=== PATIENT | male | born 1955 | race African-American/Black ===

== ENCOUNTER 2018-05-15 13:45 | Emergency (ER) | payer MEDICAID ==
[~2018-05-15] VITALS: Ht 170.2 cm; Wt 104.0 kg
[2018-05-15 13:52] VITALS: BP 128/79
== END 2018-05-15 19:30 | disposition home or self-care (01) ==
LOC: ER 13:45
DX: R03.0 Elevated blood-pressure reading, without diagnosis of hypertension (principal); F17.200 Nicotine dependence, unspecified, uncomplicated
CPT/HCPCS: 99281

== ENCOUNTER 2020-03-28 12:31 | Emergency (ER) | payer MEDICAID ==
[~2020-03-28] VITALS: Ht 177.8 cm; Wt 85.0 kg
[2020-03-28] MEDS ORDERED: TETANUS, DIPHTHERIA, PERTUSSIS VAC/PF 0.5ML (>7YR OLD) IM ONE (13:00)
[2020-03-28] MEDS ORDERED: BACITRACIN ZINC OINT UDPKT TOP ONE (13:00)
[2020-03-28] MEDS ORDERED: ACETAMINOPHEN 500MG TABLET PO ONE (13:00)
[2020-03-28 14:36] VITALS: BP 124/67
== END 2020-03-28 14:37 | disposition home or self-care (01) ==
LOC: ER 12:31
DX: S00.91XA Abrasion of unspecified part of head, initial encounter (principal); Z98.890 Other specified postprocedural states; Y04.0XXA Assault by unarmed brawl or fight, initial encounter; Y93.89 Activity, other specified; Y92.89 Other specified places as the place of occurrence of the external cause; Y99.8 Other external cause status
CPT/HCPCS: 90471; 90715; 99284

== ENCOUNTER 2025-08-01 12:28 | Inpatient (IN) | payer MEDICAID ==
[~2025-08-01] VITALS: Ht 180.3 cm; Wt 91.6 kg
[2025-08-01] MEDS: SODIUM CHLORIDE 0.9% 1,000 ML IV ONE (13:00)
[2025-08-01 15:11] LABS: MEAN PLATELET VOLUME 13.2 fl (7.4-10.4); RED BLOOD CELL COUNT 2.34 mill/uL (4.7-6.1); RED CELL DISTRIBUTION WIDTH 13.7 % (11.6-14.6)
[2025-08-01 15:21] LABS: HEMATOCRIT. 19.5 % (42.0-52.0); HEMOGLOBIN. 6.5 g/dL (14.0-18.0); PLATELET 2 x1000/uL (130-400)
[2025-08-01 15:26] LABS: INR 1.2
[2025-08-01 15:27] LABS: CREATININE 2.7 mg/dL (0.6-1.3); TROPONIN I HIGH SENSITIVITY 10 ng/L (3.0-53)
[2025-08-01 15:28] LABS: ETHANOL BLOOD < 10 mg/dL (<10); UREA NITROGEN BLOOD 39 mg/dL (9-23)
[2025-08-01 15:29] LABS: ASPARTATE AMINOTRANSFERASE 33 IU/L (<34)
[2025-08-01 15:30] LABS: BILIRUBIN DIRECT 0.5 mg/dL (<=3.0); BILIRUBIN TOTAL 1.1 mg/dL (0.1-1.0); PROTEIN TOTAL 6.2 g/dL (6.0-8.3)
[2025-08-01 15:55] LABS: LYMPHOCYTES % MANUAL 96.0 % (20.0-50.0); MONOCYTES % MANUAL 4.0 % (2.0-8.0); PLATELET ESTIMATE MARKEDLY DECREASED
[2025-08-01 15:58] LABS: NEUTROPHILS % MANUAL 0.0 % (45.0-75.0)
[2025-08-01] MEDS ORDERED: MORPHINE SULFATE 2 MG/ML INJ (NOT FOR IM USE) IV PRN (19:15)
[2025-08-01] MEDS ORDERED: ZOLPIDEM TARTRATE 5MG TABLET PO PRN (19:15)
[2025-08-01] MEDS ORDERED: MAGNESIUM/ALUMINUM HYDROXIDE/SIMETHICONE 30ML UDC PO PRN (19:15)
[2025-08-01] MEDS: SODIUM CHLORIDE 0.9% 1,000 ML IV SCH (23:33)
[2025-08-02] VITALS (18 sets, daily range): BP systolic 100–129; BP diastolic 54–78; PULSE 83–98; RESP 17–20; TEMP 36.3–39.11424; O2SAT 93–100
[2025-08-02] MEDS: CEFTRIAXONE 1GM/50ML 50 ML IV SCH ×2 (00:18→21:09)
[2025-08-02] MEDS: FILGRASTIM-TBO 300 MCG/0.5 ML SYRINGE SQ SCH (00:19)
[2025-08-02] MEDS: ACETAMINOPHEN 325MG TABLET PO PRN (01:45)
[2025-08-02] MEDS ORDERED: [UNRECOGNIZED DRUG - CODE] PO (05:50)
[2025-08-02] MEDS ORDERED: ACYCLOVIR (05:50)
[2025-08-02] MEDS: HYDROCODONE/ACETAMINOPHEN 5/325MG TABLET PO PRN (06:14)
[2025-08-02 08:09] LABS: UREA NITROGEN BLOOD 68.0 mg/dL (9-23)
[2025-08-02 08:11] LABS: MEAN PLATELET VOLUME 11.1 fl (7.4-10.4); RED BLOOD CELL COUNT 2.41 mill/uL (4.7-6.1); RED CELL DISTRIBUTION WIDTH 14.0 % (11.6-14.6)
[2025-08-02] MEDS: PANTOPRAZOLE SODIUM 40 MG/VIAL IV SCH (08:12)
[2025-08-02 08:37] LABS: HEMATOCRIT. 20.4 % (42.0-52.0); HEMOGLOBIN. 6.7 g/dL (14.0-18.0)
[2025-08-02 08:38] LABS: PLATELET 2 x1000/uL (130-400)
[2025-08-02 09:39] LABS: CREATININE 4.3 mg/dL (0.6-1.3)
[2025-08-02 11:16] LABS: CLARITY URINE TURBID (CLEAR); COLOR URINE YELLOW (YELLOW); GLUCOSE URINE NEGATIVE (NEGATIVE); KETONES URINE TRACE (NEGATIVE); LEUKOCYTE ESTERASE URINE NEGATIVE (NEGATIVE); NITRITE URINE NEGATIVE (NEGATIVE); OCCULT BLOOD URINE 2+ (NEGATIVE); PH URINE 5.0 (4.5-8.0); PROTEIN URINE 2+ (NEGATIVE); SPECIFIC GRAVITY URINE 1.013 (1.005-1.030); UROBILINOGEN URINE 0.2 E.U./dL (0.2-1.0)
[2025-08-02 11:32] LABS: *AMPHETAMINES SCREEN URINE NEGATIVE (NEGATIVE)
[2025-08-02 11:33] LABS: *BARBITURATES SCREEN URINE NEGATIVE (NEGATIVE); *BENZODIAZEPINES SCREEN URINE NEGATIVE (NEGATIVE); *COCAINE SCREEN URINE PRESUMPTIVE POSITIVE (NEGATIVE); CANNABINOID URINE SCREEN NEGATIVE (NEGATIVE); ECSTASY MDMA SCREEN URINE NEGATIVE (NEGATIVE); METHADONE URINE SCREEN NEGATIVE (NEGATIVE); OPIATES URINE SCREEN PRESUMPTIVE POSITIVE (NEGATIVE); PHENCYCLIDINE URINE SCREEN NEGATIVE (NEGATIVE)
[2025-08-02 11:34] LABS: BACTERIA URINE 4+; YEAST URINE NONE SEEN
[2025-08-02 11:57] LABS: SQUAMOUS EPITHELIAL CELL URINE NONE SEEN /lpf (RARE/1+)
[2025-08-02 12:35] LABS: HEPATITIS A AB IGM NEGATIVE (Negative)
[2025-08-02 12:36] LABS: HEPATITIS B CORE AB IGM NEGATIVE (Negative); HEPATITIS C AB NON REACTIVE (Neg) (Negative)
[2025-08-02 19:47] LABS: LYMPHOCYTES % MANUAL 87.0 % (20.0-50.0); MONOCYTES % MANUAL 6.0 % (2.0-8.0); NEUTROPHILS % MANUAL 7.0 % (45.0-75.0); PLATELET ESTIMATE DECREASED
[2025-08-02] MEDS: THIAMINE HCL 100MG TABLET PO SCH (22:16)
[2025-08-03] VITALS (15 sets, daily range): BP systolic 111–143; BP diastolic 57–89; PULSE 78–96; RESP 16–20; TEMP 36.5–39.1; O2SAT 94–100
[2025-08-03 07:06] LABS: MEAN PLATELET VOLUME 7.4 fl (7.4-10.4); RED BLOOD CELL COUNT 2.39 mill/uL (4.7-6.1); RED CELL DISTRIBUTION WIDTH 14.6 % (11.6-14.6)
[2025-08-03 07:20] LABS: INR 1.4
[2025-08-03 07:22] LABS: UREA NITROGEN BLOOD 76.0 mg/dL (9-23)
[2025-08-03 07:50] LABS: HEMATOCRIT. 20.1 % (42.0-52.0); HEMOGLOBIN. 6.9 g/dL (14.0-18.0)
[2025-08-03 07:51] LABS: PLATELET 18 x1000/uL (130-400)
[2025-08-03 07:58] LABS: CREATININE 5.7 mg/dL (0.6-1.3)
[2025-08-03 17:34] LABS: LYMPHOCYTES % MANUAL 90.0 % (20.0-50.0); MONOCYTES % MANUAL 6.0 % (2.0-8.0); NEUTROPHILS % MANUAL 4.0 % (45.0-75.0); PLATELET ESTIMATE MARKEDLY DECREASED
[2025-08-04] VITALS (8 sets, daily range): BP systolic 105–136; BP diastolic 59–86; PULSE 85–98; RESP 18–20; TEMP 36.6–37.1; O2SAT 94–98
[2025-08-04 22:30] LABS: RED BLOOD CELL COUNT 2.27 mill/uL (4.7-6.1); RED CELL DISTRIBUTION WIDTH 15.3 % (11.6-14.6)
[2025-08-04 22:38] LABS: PLATELET 2 x1000/uL (130-400)
[2025-08-04 22:47] LABS: UREA NITROGEN BLOOD 91.0 mg/dL (9-23)
[2025-08-04 22:48] LABS: LACTATE DEHYDROGENASE 142.0 IU/L (120-246)
[2025-08-04 22:51] LABS: CREATININE 5.3 mg/dL (0.6-1.3)
[2025-08-05] VITALS (23 sets, daily range): BP systolic 92–126; BP diastolic 49–76; PULSE 64–114; RESP 18–20; TEMP 35.89176–37.2252; O2SAT 92–97
[2025-08-05 10:11] LABS: ANTI-NUCLEAR ANTIBODIES DIRECT Negative (Negative); COMPLEMENT C3 57 mg/dL (82-167); COMPLEMENT C4 < 2 mg/dL (12-38)
[2025-08-05] MEDS: NALOXONE HCL 0.4MG/ML VIAL IV PRN (12:02)
[2025-08-05] MEDS: METOPROLOL TARTRATE 25MG TABLET PO SCH (21:00)
[2025-08-06] VITALS (17 sets, daily range): BP systolic 110–180; BP diastolic 60–83; PULSE 68–103; RESP 18–20; TEMP 35.72508–37.11408; O2SAT 95–98
[2025-08-06 12:06] LABS: RED BLOOD CELL COUNT 2.78 mill/uL (4.7-6.1); RED CELL DISTRIBUTION WIDTH 15.8 % (11.6-14.6)
[2025-08-06 12:35] LABS: PLATELET 6 x1000/uL (130-400)
[2025-08-06 17:02] LABS: HEMATOCRIT. 23.3 % (42.0-52.0); HEMOGLOBIN. 8.1 g/dL (14.0-18.0); MEAN PLATELET VOLUME 8.8 fl (7.4-10.4); RED BLOOD CELL COUNT 2.76 mill/uL (4.7-6.1); RED CELL DISTRIBUTION WIDTH 15.9 % (11.6-14.6)
[2025-08-06 17:25] LABS: PLATELET 8 x1000/uL (130-400); UREA NITROGEN BLOOD 77.0 mg/dL (9-23)
[2025-08-06 17:40] LABS: CREATININE 3.6 mg/dL (0.6-1.3)
[2025-08-06 18:48] LABS: LYMPHOCYTES % MANUAL 92.0 % (20.0-50.0); MONOCYTES % MANUAL 4.0 % (2.0-8.0); NEUTROPHILS % MANUAL 4.0 % (45.0-75.0); PLATELET ESTIMATE MARKEDLY DECREASED
[2025-08-06] MEDS: TRIAMCINOLONE ACETONIDE 0.1 % OINT 15GM TOP SCH (20:52)
[2025-08-06] MEDS: CLONIDINE 0.1MG TABLET PO PRN (21:17)
[2025-08-07] VITALS (14 sets, daily range): BP systolic 109–157; BP diastolic 60–82; PULSE 65–89; RESP 18–20; TEMP 35.8362–37.1; O2SAT 97–100
[2025-08-07 16:53] LABS: MEAN PLATELET VOLUME 7.3 fl (7.4-10.4); RED BLOOD CELL COUNT 2.37 mill/uL (4.7-6.1); RED CELL DISTRIBUTION WIDTH 15.9 % (11.6-14.6)
[2025-08-07 17:06] LABS: CREATININE 2.6 mg/dL (0.6-1.3); UREA NITROGEN BLOOD 61.0 mg/dL (9-23)
[2025-08-07 17:16] LABS: HEMATOCRIT. 19.9 % (42.0-52.0); HEMOGLOBIN. 6.8 g/dL (14.0-18.0)
[2025-08-07 17:17] LABS: PLATELET 16 x1000/uL (130-400)
[2025-08-07 18:42] LABS: LYMPHOCYTES % MANUAL 92.0 % (20.0-50.0); MONOCYTES % MANUAL 4.0 % (2.0-8.0); NEUTROPHILS % MANUAL 4.0 % (45.0-75.0)
[2025-08-07 18:43] LABS: PLATELET ESTIMATE MARKEDLY DECREASED
[2025-08-08] VITALS (14 sets, daily range): BP systolic 136–168; BP diastolic 54–82; PULSE 62–87; RESP 18–20; TEMP 36.55848–37.1; O2SAT 93–100
[2025-08-08 10:31] LABS: HEMATOCRIT. 21.6 % (42.0-52.0); HEMOGLOBIN. 7.4 g/dL (14.0-18.0); MEAN PLATELET VOLUME 8.2 fl (7.4-10.4); RED BLOOD CELL COUNT 2.61 mill/uL (4.7-6.1); RED CELL DISTRIBUTION WIDTH 16.3 % (11.6-14.6)
[2025-08-08 10:45] LABS: PLATELET 10 x1000/uL (130-400)
[2025-08-08 10:51] LABS: CREATININE 2.1 mg/dL (0.6-1.3); UREA NITROGEN BLOOD 53.0 mg/dL (9-23)
[2025-08-08 14:19] LABS: LYMPHOCYTES % MANUAL 92.0 % (20.0-50.0); MONOCYTES % MANUAL 4.0 % (2.0-8.0); NEUTROPHILS % MANUAL 4.0 % (45.0-75.0); PLATELET ESTIMATE MARKEDLY DECREASED
[2025-08-09] VITALS (7 sets, daily range): BP systolic 140–164; BP diastolic 56–87; PULSE 62–76; RESP 18–20; TEMP 36.6–37.3; O2SAT 95–98
[2025-08-09 10:42] LABS: HEMATOCRIT. 21.4 % (42.0-52.0); HEMOGLOBIN. 7.4 g/dL (14.0-18.0); MEAN PLATELET VOLUME 7.9 fl (7.4-10.4); RED BLOOD CELL COUNT 2.59 mill/uL (4.7-6.1); RED CELL DISTRIBUTION WIDTH 16.0 % (11.6-14.6)
[2025-08-09 10:49] LABS: PLATELET 30 x1000/uL (130-400)
[2025-08-09 10:52] LABS: CREATININE 1.6 mg/dL (0.6-1.3); UREA NITROGEN BLOOD 39.0 mg/dL (9-23)
[2025-08-09 17:32] LABS: LYMPHOCYTES % MANUAL 100.0 % (20.0-50.0); PLATELET ESTIMATE MARKEDLY DECREASED
[2025-08-09 17:33] LABS: NEUTROPHILS % MANUAL 0.0 % (45.0-75.0)
[2025-08-09] MEDS: POTASSIUM CHLORIDE 20MEQ TABLET SR PO NR (22:09)
[2025-08-10] VITALS: BP 151/63; PULSE 68; RESP 18; TEMP 36.7; O2SAT 98
[2025-08-10 04:00] VITALS: BP 155/75; PULSE 59; RESP 18; TEMP 36.4; O2SAT 98
[2025-08-10 08:00] VITALS: BP 168/66; PULSE 59; RESP 20; TEMP 36.7; O2SAT 99
[2025-08-10 12:00] VITALS: BP 149/63; PULSE 66; RESP 20; TEMP 36.7; O2SAT 98
[2025-08-10 16:00] VITALS: BP 152/81; PULSE 70; RESP 18; TEMP 36.7; O2SAT 97
[2025-08-10 20:00] VITALS: BP 169/72; PULSE 78; RESP 18; TEMP 36.9; O2SAT 98
[2025-08-11] VITALS: BP 137/55; PULSE 68; RESP 17; TEMP 37.1; O2SAT 99
[2025-08-11 04:00] VITALS: BP 166/70; PULSE 68; RESP 17; TEMP 36.3; O2SAT 97
[2025-08-11 08:00] VITALS: BP 143/65; PULSE 70; RESP 19; TEMP 36.7; O2SAT 100
[2025-08-11 10:12] LABS: ATYPICAL P-ANCA <1:20 titer (Neg:<1:20); CYTOPLASMIC C-ANCA <1:20 titer (Neg:<1:20); PERINUCLEAR P-ANCA <1:20 titer (Neg:<1:20)
[2025-08-11 12:00] VITALS: BP 152/72; PULSE 70; RESP 19; TEMP 36.6; O2SAT 100
[2025-08-11 13:08] LABS: DIRECTOR REVIEW Comment: (.); FISH RESULTS Comment: (.)
[2025-08-11 16:00] VITALS: BP 158/82; PULSE 74; RESP 16; TEMP 36.5; O2SAT 96
[2025-08-11 20:00] VITALS: BP 183/86; PULSE 78; RESP 20; TEMP 37.2; O2SAT 98
[2025-08-12] VITALS (7 sets, daily range): BP systolic 130–164; BP diastolic 61–95; PULSE 71–84; RESP 17–19; TEMP 36.7–37.2; O2SAT 99–100
[2025-08-12 14:11] LABS: ANTI-MYELOPEROXIDASE AB 0.2 units (0.0-0.9); ANTI-PROTEINASE 3 ABS 2.8 units (0.0-0.9)
[2025-08-13] VITALS: BP 131/91; PULSE 66; RESP 18; TEMP 36.1; O2SAT 100
[2025-08-13 08:00] VITALS: BP 156/74; PULSE 74; RESP 16; TEMP 36.3; O2SAT 99
[2025-08-13 12:00] VITALS: BP 137/70; PULSE 67; RESP 18; TEMP 36.6; O2SAT 100
[2025-08-13 16:00] VITALS: BP 143/75; PULSE 78; RESP 20; TEMP 36.6; O2SAT 99
[2025-08-13 20:00] VITALS: BP 135/72; PULSE 84; RESP 18; TEMP 37.9; O2SAT 98
[2025-08-14] VITALS: BP 117/70; PULSE 72; RESP 18; TEMP 37; O2SAT 98
[2025-08-14 04:00] VITALS: BP 134/68; PULSE 76; RESP 16; TEMP 36.9; O2SAT 98
[2025-08-14 08:00] VITALS: BP 140/69; PULSE 86; RESP 16; TEMP 36.3; O2SAT 96
[2025-08-14 12:00] VITALS: BP 114/69; PULSE 75; RESP 16; TEMP 36.7; O2SAT 100
[2025-08-14 16:00] VITALS: BP 148/75; PULSE 93; RESP 18; TEMP 38.2; O2SAT 97
[2025-08-14 20:00] VITALS: BP 127/59; PULSE 86; RESP 18; TEMP 37.2; O2SAT 96
[2025-08-15] VITALS: BP 179/77; PULSE 87; RESP 18; TEMP 37.8; O2SAT 98
[2025-08-15 00:09] LABS: MEAN PLATELET VOLUME 8.6 fl (7.4-10.4); RED BLOOD CELL COUNT 2.41 mill/uL (4.7-6.1); RED CELL DISTRIBUTION WIDTH 14.8 % (11.6-14.6)
[2025-08-15 00:21] LABS: CREATININE 1.3 mg/dL (0.6-1.3)
[2025-08-15 00:22] LABS: UREA NITROGEN BLOOD 27 mg/dL (9-23)
[2025-08-15 00:28] LABS: HEMATOCRIT. 20.6 % (42.0-52.0); HEMOGLOBIN. 7.0 g/dL (14.0-18.0); PLATELET 3 x1000/uL (130-400)
[2025-08-15 01:32] LABS: CLARITY URINE CLEAR (CLEAR); COLOR URINE YELLOW (YELLOW); GLUCOSE URINE NEGATIVE (NEGATIVE); KETONES URINE NEGATIVE (NEGATIVE); LEUKOCYTE ESTERASE URINE NEGATIVE (NEGATIVE); NITRITE URINE NEGATIVE (NEGATIVE); OCCULT BLOOD URINE NEGATIVE (NEGATIVE); PH URINE 6.0 (4.5-8.0); PROTEIN URINE NEGATIVE (NEGATIVE); SPECIFIC GRAVITY URINE 1.015 (1.005-1.030); UROBILINOGEN URINE 1.0 E.U./dL (0.2-1.0)
[2025-08-15 04:00] VITALS: BP 129/62; PULSE 90; RESP 18; TEMP 36.2; O2SAT 97
[2025-08-15 08:00] VITALS: BP 138/63; PULSE 94; RESP 17; TEMP 36.9; O2SAT 100
[2025-08-15] MEDS ORDERED: NALOXONE HCL 0.4MG/ML VIAL IV PRN (09:45)
[2025-08-15 12:00] VITALS: BP 115/55; PULSE 76; RESP 16; TEMP 36.5; O2SAT 100
[2025-08-15 12:16] LABS: LYMPHOCYTES % MANUAL 100.0 % (20.0-50.0); PLATELET ESTIMATE MARKEDLY DECREASED
[2025-08-15] MEDS: NYSTATIN 100,000 UNITS/ML 5ML UDC SSW SCH (12:59)
[2025-08-15 16:00] VITALS: BP 115/54; PULSE 90; RESP 18; TEMP 36.7; O2SAT 100
[2025-08-15 20:00] VITALS: BP 89/47; PULSE 89; RESP 17; TEMP 37.6; O2SAT 99
[2025-08-16] VITALS (11 sets, daily range): BP systolic 79–127; BP diastolic 37–72; PULSE 71–100; RESP 17–20; TEMP 36.6–37.7808; O2SAT 97–100
[2025-08-16] MEDS ORDERED: PIPERACILLIN/TAZO 3.375G/50ML 50 ML IV SCH (14:00)
[2025-08-16] MEDS: CEFEPIME 2GM PREMIX 100ML IV SCH (14:46)
[2025-08-16] MEDS: VISCOUS LIDOCAINE 2% 15 ML UDC MM PRN (14:46)
[2025-08-16 16:25] LABS: MEAN PLATELET VOLUME 7.5 fl (7.4-10.4); RED BLOOD CELL COUNT 2.09 mill/uL (4.7-6.1); RED CELL DISTRIBUTION WIDTH 14.5 % (11.6-14.6)
[2025-08-16 16:44] LABS: CREATININE 1.6 mg/dL (0.6-1.3)
[2025-08-16 16:45] LABS: UREA NITROGEN BLOOD 35.0 mg/dL (9-23)
[2025-08-16 17:05] LABS: HEMATOCRIT. 17.9 % (42.0-52.0); HEMOGLOBIN. 5.9 g/dL (14.0-18.0); PLATELET 13 x1000/uL (130-400)
[2025-08-16 17:46] LABS: LYMPHOCYTES % MANUAL 96.0 % (20.0-50.0); MONOCYTES % MANUAL 3.0 % (2.0-8.0); NEUTROPHILS % MANUAL 1.0 % (45.0-75.0); PLATELET ESTIMATE MARKEDLY DECREASED
[2025-08-16] MEDS ORDERED: ACETAMINOPHEN 325MG TABLET PO NR (18:26)
[2025-08-17] VITALS (36 sets, daily range): BP systolic 79–146; BP diastolic 37–85; PULSE 67–88; RESP 10–25; TEMP 36.7–38.3; O2SAT 93–100
[2025-08-17] MEDS: SODIUM CHLORIDE 0.9% 1,000 ML IV SCH
[2025-08-17] MEDS: SODIUM CHLORIDE 0.9% 1,000 ML IV ONE (00:08)
[2025-08-17 09:22] LABS: CLARITY URINE CLEAR (CLEAR); COLOR URINE YELLOW (YELLOW); GLUCOSE URINE NEGATIVE (NEGATIVE); KETONES URINE NEGATIVE (NEGATIVE); LEUKOCYTE ESTERASE URINE NEGATIVE (NEGATIVE); NITRITE URINE NEGATIVE (NEGATIVE); OCCULT BLOOD URINE NEGATIVE (NEGATIVE); PH URINE 5.5 (4.5-8.0); PROTEIN URINE TRACE (NEGATIVE); SPECIFIC GRAVITY URINE 1.017 (1.005-1.030); UROBILINOGEN URINE 0.2 E.U./dL (0.2-1.0)
[2025-08-17 09:44] LABS: HYALINE CASTS URINE 0-5 /lpf
[2025-08-17 09:45] LABS: RBC URINE 0-2 /hpf (0-2); SQUAMOUS EPITHELIAL CELL URINE FEW /lpf (RARE/1+); WBC URINE 0-2 /hpf (0-2)
[2025-08-17 09:46] LABS: BACTERIA URINE TRACE
[2025-08-17 13:58] LABS: CREATININE 1.3 mg/dL (0.6-1.3); UREA NITROGEN BLOOD 27 mg/dL (9-23)
[2025-08-17 22:07] LABS: MEAN PLATELET VOLUME 7.9 fl (7.4-10.4); RED BLOOD CELL COUNT 1.90 mill/uL (4.7-6.1); RED CELL DISTRIBUTION WIDTH 14.4 % (11.6-14.6)
[2025-08-17 22:30] LABS: HEMOGLOBIN. 5.6 g/dL (14.0-18.0)
[2025-08-17 22:31] LABS: HEMATOCRIT. 16.3 % (42.0-52.0); PLATELET 42 x1000/uL (130-400)
[2025-08-17 23:13] LABS: BAND% 1.0 % (1.0-6.0); LYMPHOCYTES % MANUAL 95.0 % (20.0-50.0); MONOCYTES % MANUAL 4.0 % (2.0-8.0); PLATELET ESTIMATE MARKEDLY DECREASED
[2025-08-17 23:15] LABS: NEUTROPHILS % MANUAL 0.0 % (45.0-75.0)
[2025-08-18] VITALS (24 sets, daily range): BP systolic 122–163; BP diastolic 55–78; PULSE 56–77; RESP 9–24; TEMP 36.1–37.55856; O2SAT 96–99
[2025-08-18 10:22] LABS: MEAN PLATELET VOLUME 8.1 fl (7.4-10.4); RED BLOOD CELL COUNT 2.34 mill/uL (4.7-6.1); RED CELL DISTRIBUTION WIDTH 14.1 % (11.6-14.6)
[2025-08-18 10:35] LABS: CREATININE 1.1 mg/dL (0.6-1.3); UREA NITROGEN BLOOD 22 mg/dL (9-23)
[2025-08-18 10:54] LABS: HEMATOCRIT. 20.0 % (42.0-52.0); HEMOGLOBIN. 6.7 g/dL (14.0-18.0); PLATELET 33 x1000/uL (130-400)
[2025-08-18 15:40] LABS: LYMPHOCYTES % MANUAL 96.0 % (20.0-50.0); MONOCYTES % MANUAL 2.0 % (2.0-8.0); NEUTROPHILS % MANUAL 2.0 % (45.0-75.0); PLATELET ESTIMATE MARKEDLY DECREASED
[2025-08-18] MEDS: NYSTATIN 100,000 UNITS/ML 5ML UDC SSW SCH (15:50)
[2025-08-18] MEDS: DIPHENHYDRAMINE 12.5MG/5ML UDC PO SCH (15:51)
[2025-08-18] MEDS: MAGNESIUM/ALUMINUM HYDROXIDE/SIMETHICONE 30ML UDC PO SCH (15:51)
[2025-08-18] MEDS: VISCOUS LIDOCAINE 2% 15 ML UDC MM SCH (15:51)
[2025-08-19] VITALS (11 sets, daily range): BP systolic 152–173; BP diastolic 69–91; PULSE 57–78; RESP 9–22; TEMP 36.1–37.1; O2SAT 93–98
[2025-08-19 12:54] LABS: HEMATOCRIT. 22.3 % (42.0-52.0); HEMOGLOBIN. 7.6 g/dL (14.0-18.0); MEAN PLATELET VOLUME 8.0 fl (7.4-10.4); RED BLOOD CELL COUNT 2.63 mill/uL (4.7-6.1); RED CELL DISTRIBUTION WIDTH 13.6 % (11.6-14.6)
[2025-08-19 13:04] LABS: CREATININE 1.0 mg/dL (0.6-1.3); UREA NITROGEN BLOOD 17 mg/dL (9-23)
[2025-08-19 13:38] LABS: PLATELET 18 x1000/uL (130-400)
[2025-08-19] MEDS: MORPHINE SULFATE 4 MG/ML INJ (FOR IV/IM USE) IV PRN (15:27)
[2025-08-19 17:24] LABS: LYMPHOCYTES % MANUAL 98.0 % (20.0-50.0); METAMYELOCYTES % 1.0 % (0-0); NEUTROPHILS % MANUAL 1.0 % (45.0-75.0); PLATELET ESTIMATE MARKEDLY DECREASED
[2025-08-20] VITALS: BP 173/81; PULSE 61; RESP 20; TEMP 37.6; O2SAT 95
[2025-08-20 04:00] VITALS: BP 144/72; PULSE 53; RESP 15; O2SAT 96
[2025-08-20 05:22] LABS: BASOPHILS % 0.0 % (0.0-2.0); EOSINOPHILS % 0.1 % (0.0-5.0); HEMATOCRIT. 21.5 % (42.0-52.0); HEMOGLOBIN. 7.1 g/dL (14.0-18.0); LYMPHOCYTES % 96.6 % (20.0-50.0); MEAN PLATELET VOLUME 8.0 fl (7.4-10.4); MONOCYTES % 1.9 % (2.0-8.0); NEUTROPHILS % 1.4 % (40.0-76.0); RED BLOOD CELL COUNT 2.51 mill/uL (4.7-6.1); RED CELL DISTRIBUTION WIDTH 14.0 % (11.6-14.6)
[2025-08-20 05:41] LABS: CREATININE 1.0 mg/dL (0.6-1.3); UREA NITROGEN BLOOD 14 mg/dL (9-23)
[2025-08-20 06:31] LABS: PLATELET 12 x1000/uL (130-400)
[2025-08-20 08:00] VITALS: BP 146/73; PULSE 53; RESP 18; TEMP 36.7; O2SAT 95
[2025-08-20 12:00] VITALS: BP 161/76; PULSE 52; RESP 17; TEMP 36.7; O2SAT 97
[2025-08-20 16:00] VITALS: BP 138/72; PULSE 56; RESP 18; TEMP 36.4; O2SAT 96
[2025-08-20 20:00] VITALS: BP 123/75; PULSE 60; RESP 18; TEMP 36.8; O2SAT 97
[2025-08-21] VITALS: BP 139/79; PULSE 60; RESP 18; TEMP 36.4; O2SAT 98
[2025-08-21 04:00] VITALS: BP 125/75; PULSE 60; RESP 18; TEMP 37.1; O2SAT 98
[2025-08-21 20:00] VITALS: BP 112/70; PULSE 65; RESP 18; TEMP 36.7; O2SAT 99
[2025-08-22] VITALS: BP 159/68; PULSE 63; RESP 19; TEMP 37.3; O2SAT 96
[2025-08-22 04:00] VITALS: BP 135/69; PULSE 62; RESP 18; TEMP 36.6; O2SAT 97
[2025-08-22 08:00] VITALS: BP 119/74; PULSE 68; RESP 18; TEMP 36.7; O2SAT 98
[2025-08-22 12:00] VITALS: BP 105/63; PULSE 60; RESP 18; TEMP 36.7; O2SAT 100
[2025-08-22 16:00] VITALS: BP 106/67; PULSE 67; RESP 18; TEMP 37.1; O2SAT 100
[2025-08-22] MEDS: DOCUSATE SODIUM 100MG CAPSULE PO SCH (16:03)
[2025-08-22 20:00] VITALS: BP 119/68; PULSE 60; RESP 20; TEMP 36.6; O2SAT 95
[2025-08-23] VITALS: BP 117/72; PULSE 96; RESP 20; TEMP 37.2; O2SAT 96
[2025-08-23 04:00] VITALS: BP 118/70; PULSE 71; RESP 20; TEMP 36.4; O2SAT 98
[2025-08-23 08:00] VITALS: BP 127/74; PULSE 66; RESP 16; TEMP 37; O2SAT 100
[2025-08-23 12:00] VITALS: BP 106/63; PULSE 69; RESP 16; TEMP 36.8; O2SAT 100
[2025-08-23 16:00] VITALS: BP 116/69; PULSE 69; RESP 18; TEMP 37.1; O2SAT 100
[2025-08-23 20:00] VITALS: BP 117/75; PULSE 70; RESP 20; TEMP 36.8; O2SAT 100
[2025-08-24] VITALS (8 sets, daily range): BP systolic 98–159; BP diastolic 60–76; PULSE 59–72; RESP 17–20; TEMP 35.39172–37.1; O2SAT 97–99
[2025-08-24 07:44] LABS: MEAN PLATELET VOLUME 10.2 fl (7.4-10.4); RED BLOOD CELL COUNT 2.07 mill/uL (4.7-6.1); RED CELL DISTRIBUTION WIDTH 13.5 % (11.6-14.6)
[2025-08-24 07:55] LABS: HEMATOCRIT. 17.6 % (42.0-52.0); HEMOGLOBIN. 5.9 g/dL (14.0-18.0); PLATELET 2 x1000/uL (130-400)
[2025-08-24 08:09] LABS: CREATININE 0.7 mg/dL (0.6-1.3)
[2025-08-24 08:10] LABS: UREA NITROGEN BLOOD 12 mg/dL (9-23)
[2025-08-24 11:06] LABS: LYMPHOCYTES % MANUAL 97.0 % (20.0-50.0); MONOCYTES % MANUAL 1.0 % (2.0-8.0); NEUTROPHILS % MANUAL 2.0 % (45.0-75.0); PLATELET ESTIMATE MARKEDLY DECREASED
[2025-08-24] MEDS: POTASSIUM CHLORIDE 20MEQ TABLET SR PO SCH (12:54)
[2025-08-24 22:52] LABS: PHOSPHORUS 2.5 mg/dL (2.5-4.9)
[2025-08-25] VITALS (26 sets, daily range): BP systolic 109–156; BP diastolic 57–84; PULSE 63–84; RESP 16–20; TEMP 35.50284–37.72524; O2SAT 96–100
[2025-08-25] MEDS ORDERED: MAGNESIUM 2 G PREMIX 50 ML IV NR (10:00)
[2025-08-25 10:04] LABS: MEAN PLATELET VOLUME 7.6 fl (7.4-10.4); RED BLOOD CELL COUNT 1.69 mill/uL (4.7-6.1); RED CELL DISTRIBUTION WIDTH 13.2 % (11.6-14.6)
[2025-08-25 10:20] LABS: HEMATOCRIT. 14.4 % (42.0-52.0); HEMOGLOBIN. 4.9 g/dL (14.0-18.0)
[2025-08-25 14:18] LABS: BAND% 1.0 % (1.0-6.0); LYMPHOCYTES % MANUAL 96.0 % (20.0-50.0); MONOCYTES % MANUAL 3.0 % (2.0-8.0)
[2025-08-25 14:19] LABS: PLATELET ESTIMATE MARKEDLY DECREASED
[2025-08-25 14:22] LABS: PLATELET 46 x1000/uL (130-400)
[2025-08-25 16:16] LABS: NEUTROPHILS % MANUAL 0.0 % (45.0-75.0)
[2025-08-25] MEDS: MAGNESIUM 2 G PREMIX 50 ML IV NR (20:00)
[2025-08-26] VITALS: BP 126/76; PULSE 69; RESP 17; TEMP 36.7; O2SAT 97
[2025-08-26 04:00] VITALS: BP 121/70; PULSE 80; RESP 18; TEMP 36.1; O2SAT 97
[2025-08-26 07:07] LABS: A/G RATIO 0.4 (0.7-1.7); BETA GLOBULIN 1.2 g/dL (0.7-1.3); GAMMA GLOBULINS 2.9 g/dL (0.4-1.8); GLOBULIN TOTAL 5.1 g/dL (2.2-3.9); M-SPIKE Not Observed g/dL (Not Observed); TOTAL PROTEIN SERUM 7.0 g/dL (6.0-8.5)
[2025-08-26 08:00] VITALS: BP 113/61; PULSE 74; RESP 19; TEMP 36.9; O2SAT 97
[2025-08-26 12:00] VITALS: BP 112/70; PULSE 58; RESP 18; TEMP 37; O2SAT 97
[2025-08-26 12:22] LABS: MEAN PLATELET VOLUME 7.4 fl (7.4-10.4); RED BLOOD CELL COUNT 2.30 mill/uL (4.7-6.1); RED CELL DISTRIBUTION WIDTH 13.4 % (11.6-14.6)
[2025-08-26 12:33] LABS: INR 1.1
[2025-08-26 12:48] LABS: CREATININE 0.8 mg/dL (0.6-1.3)
[2025-08-26 12:49] LABS: UREA NITROGEN BLOOD 11 mg/dL (9-23)
[2025-08-26 12:50] LABS: HEMATOCRIT. 19.7 % (42.0-52.0); HEMOGLOBIN. 6.7 g/dL (14.0-18.0)
[2025-08-26 12:51] LABS: PLATELET 36 x1000/uL (130-400)
[2025-08-26 12:52] LABS: PHOSPHORUS 3.8 mg/dL (2.5-4.9)
[2025-08-26 16:00] VITALS: BP 100/67; PULSE 53; RESP 19; TEMP 36.8; O2SAT 98
[2025-08-26 20:00] VITALS: BP 118/76; PULSE 81; RESP 19; TEMP 36.6; O2SAT 98
[2025-08-27] VITALS (12 sets, daily range): BP systolic 103–135; BP diastolic 66–82; PULSE 61–75; RESP 15–20; TEMP 36.4–37.44744; O2SAT 96–100
[2025-08-27 10:07] LABS: LYMPHOCYTES % MANUAL 98.0 % (20.0-50.0); MONOCYTES % MANUAL 2.0 % (2.0-8.0)
[2025-08-27 10:08] LABS: PLATELET ESTIMATE MARKEDLY DECREASED
[2025-08-27] MEDS: ONDANSETRON HCL 4MG/2ML INJ IV PRN (23:25)
[2025-08-28] VITALS: BP 146/83; PULSE 77; RESP 20; TEMP 36.4; O2SAT 97
[2025-08-28 04:00] VITALS: BP 107/72; PULSE 71; RESP 16; TEMP 36.7; O2SAT 99
[2025-08-28 08:00] VITALS: BP 107/69; PULSE 69; RESP 20; TEMP 36.2; O2SAT 98
[2025-08-28 12:00] VITALS: BP 106/70; PULSE 86; RESP 19; TEMP 36.2; O2SAT 98
[2025-08-28 16:00] VITALS: BP 110/71; PULSE 83; RESP 19; TEMP 36.1; O2SAT 98
[2025-08-28 20:00] VITALS: BP 102/65; PULSE 70; RESP 20; TEMP 36.7; O2SAT 99
[2025-08-29] VITALS: BP 113/67; PULSE 82; RESP 19; TEMP 36.4; O2SAT 98
[2025-08-29 04:00] VITALS: BP 117/75; PULSE 82; RESP 16; TEMP 36.1; O2SAT 100
[2025-08-29 06:52] LABS: CREATININE 0.9 mg/dL (0.6-1.3); UREA NITROGEN BLOOD 10 mg/dL (9-23)
[2025-08-29 06:58] LABS: HEMOGLOBIN. 7.2 g/dL (14.0-18.0); MEAN PLATELET VOLUME 7.1 fl (7.4-10.4); RED BLOOD CELL COUNT 2.45 mill/uL (4.7-6.1); RED CELL DISTRIBUTION WIDTH 13.4 % (11.6-14.6)
[2025-08-29 07:54] LABS: HEMATOCRIT. 20.9 % (42.0-52.0)
[2025-08-29 07:55] LABS: PLATELET 13 x1000/uL (130-400)
[2025-08-29 08:00] VITALS: BP 106/69; PULSE 85; RESP 17; TEMP 37; O2SAT 96
[2025-08-29] MEDS ORDERED: METO25TA6 PO (11:13)
[2025-08-29] MEDS ORDERED: THIA100T72 PO (11:13)
[2025-08-29 12:00] VITALS: BP 100/64; RESP 16; TEMP 36.4; O2SAT 80
[2025-08-29 13:13] LABS: BAND% 2.0 % (1.0-6.0); LYMPHOCYTES % MANUAL 93.0 % (20.0-50.0); MONOCYTES % MANUAL 2.0 % (2.0-8.0); NEUTROPHILS % MANUAL 3.0 % (45.0-75.0); PLATELET ESTIMATE MARKEDLY DECREASED
[2025-08-29 16:00] VITALS: BP 95/60; PULSE 93; RESP 18; TEMP 36.4; O2SAT 96
[2025-08-29 20:00] VITALS: BP 97/63; PULSE 87; RESP 18; TEMP 37.3; O2SAT 96
[2025-08-30] VITALS: BP 103/64; PULSE 78; RESP 19; TEMP 36.7; O2SAT 97
[2025-08-30 04:00] VITALS: BP 110/65; PULSE 78; RESP 19; TEMP 36.7; O2SAT 97
[2025-08-30 08:00] VITALS: BP 99/55; PULSE 77; RESP 20; TEMP 36.7; O2SAT 97
[2025-08-30 12:00] VITALS: BP 105/62; PULSE 82; RESP 20; TEMP 36.7; O2SAT 98
[2025-08-30 16:00] VITALS: BP 102/63; PULSE 78; RESP 20; TEMP 36.6; O2SAT 98
[2025-08-30 20:00] VITALS: BP 99/68; PULSE 80; RESP 16; TEMP 36.4; O2SAT 100
[2025-08-31] VITALS: BP 97/67; PULSE 86; RESP 17; TEMP 37; O2SAT 99
[2025-08-31 04:00] VITALS: BP 102/61; PULSE 86; RESP 18; TEMP 36.6; O2SAT 100
[2025-08-31 08:00] VITALS: BP 103/59; PULSE 83; RESP 19; TEMP 37; O2SAT 97
[2025-08-31 12:00] VITALS: BP 100/60; PULSE 90; RESP 18; TEMP 36.8; O2SAT 97
[2025-08-31 16:00] VITALS: BP 103/68; PULSE 85; RESP 19; TEMP 36.7; O2SAT 97
[2025-08-31 20:00] VITALS: BP 97/62; PULSE 91; RESP 20; TEMP 36.8; O2SAT 100
[2025-09-01] VITALS: BP 98/70; PULSE 82; RESP 20; TEMP 36.7; O2SAT 98
[2025-09-01 04:00] VITALS: BP 105/73; PULSE 88; RESP 20; TEMP 37.2; O2SAT 100
[2025-09-01 08:00] VITALS: BP 106/71; PULSE 91; RESP 18; TEMP 36.4; O2SAT 98
[2025-09-01 12:00] VITALS: BP 95/57; PULSE 95; RESP 19; TEMP 36.4; O2SAT 97
[2025-09-01 16:00] VITALS: BP 102/66; PULSE 111; RESP 19; TEMP 36.4; O2SAT 97
[2025-09-01 20:00] VITALS: BP 99/66; PULSE 109; RESP 19; TEMP 36.6; O2SAT 97
[2025-09-02] VITALS: BP 95/61; PULSE 109; RESP 19; TEMP 36.6; O2SAT 97
[2025-09-02 04:00] VITALS: BP 92/59; PULSE 101; RESP 17; TEMP 36.9; O2SAT 98
[2025-09-02 08:00] VITALS: BP 101/52; PULSE 102; RESP 18; TEMP 36.1; O2SAT 99
[2025-09-02 12:00] VITALS: BP 105/64; PULSE 100; RESP 21; TEMP 36.2; O2SAT 98
[2025-09-02 16:00] VITALS: BP 101/66; PULSE 93; RESP 17; TEMP 36.5; O2SAT 98
[2025-09-02 20:00] VITALS: BP 82/50; PULSE 112; RESP 19; TEMP 37.1; O2SAT 100
[2025-09-03] VITALS (55 sets, daily range): BP systolic 77–159; BP diastolic 42–106; PULSE 25–130; RESP 17–40; TEMP 36.6696–37.8; O2SAT 92–100
[2025-09-03] MEDS: MIDODRINE HCL 5MG TABLET PO NR (05:09)
[2025-09-03] MEDS: SODIUM CHLORIDE 0.9% 1,000 ML IV ONE ×2 (05:16)
[2025-09-03 10:22] LABS: MEAN PLATELET VOLUME 7.7 fl (7.4-10.4); RED BLOOD CELL COUNT 1.07 mill/uL (4.7-6.1); RED CELL DISTRIBUTION WIDTH 13.5 % (11.6-14.6)
[2025-09-03 10:29] LABS: HEMATOCRIT. 9.4 % (42.0-52.0); HEMOGLOBIN. 3.0 g/dL (14.0-18.0); PLATELET 7 x1000/uL (130-400)
[2025-09-03] MEDS: PANTOPRAZOLE SODIUM 40 MG/VIAL IV NR (10:30)
[2025-09-03 10:45] LABS: UREA NITROGEN BLOOD 61 mg/dL (9-23)
[2025-09-03 10:47] LABS: PHOSPHORUS 3.4 mg/dL (2.5-4.9)
[2025-09-03 10:48] LABS: CREATININE 1.7 mg/dL (0.6-1.3)
[2025-09-03] MEDS ORDERED: CEFEPIME 2GM IN DEXT 5% 100ML IV SCH (11:30)
[2025-09-03] MEDS: PHENYLEPHRINE 50MG/250ML PMX 250 ML IV PRN (11:47)
[2025-09-03] MEDS: PANTOPRAZOLE 80 MG in SODIUM CHLORIDE 0.9% 100 ML IV SCH (11:48)
[2025-09-03] MEDS: OCTREOTIDE 1,000 MCG in SODIUM CHLORIDE 0.9% 98 ML IV SCH (11:48)
[2025-09-03] MEDS: MIDODRINE HCL 5MG TABLET PO SCH (12:23)
[2025-09-03 12:59] LABS: MEAN PLATELET VOLUME 11.8 fl (7.4-10.4); RED BLOOD CELL COUNT 1.00 mill/uL (4.7-6.1); RED CELL DISTRIBUTION WIDTH 13.2 % (11.6-14.6)
[2025-09-03] MEDS: CEFEPIME 2GM/100ML 100 ML IV SCH (13:00)
[2025-09-03 13:04] LABS: CREATININE 2.0 mg/dL (0.6-1.3)
[2025-09-03 13:05] LABS: UREA NITROGEN BLOOD 72.0 mg/dL (9-23)
[2025-09-03 13:06] LABS: HEMATOCRIT. 8.7 % (42.0-52.0); HEMOGLOBIN. 2.9 g/dL (14.0-18.0); PLATELET 1 x1000/uL (130-400)
[2025-09-03] MEDS ORDERED: NOREPINEPHRINE 8MG/250ML PMX 250ML IV PRN (13:30)
[2025-09-03] MEDS ORDERED: NOREPINEPHRINE 8 MG in DEXT 5% WATER 242 ML IV PRN (13:30)
[2025-09-03 14:05] LABS: BG BASE EXCESS -12.4 mmol/L (-2.0-3.0); BG CARBOXYHEMOGLOBIN 0.7 % (0.5-1.5); BG DEOXYHEMOGLOBIN 2.0 % (0.0-5.0); BG FRACTION INSPIRED OXYGEN 21; BG HCO3 ACT 12.3 mmol/L (21.0-28.0); BG METHEMOGLOBIN 0.3 % (0.5-1.5); BG OXYGEN SATURATION 98.0 % (94.0-98.0); BG OXYHEMOGLOBIN 97.0 % (94.0-98.0); BG PCO2 21.8 mmHg (35.0-48.0); BG PEEP (cmH2O) 10.0 cmH2O; BG PH 7.368 (7.350-7.450); BG PO2 118.1 mmHg (83.0-108.0); BG SAMPLE SITE RIGHT RADIAL; BG TOTAL HEMOGLOBIN 2.8 g/dL (13.5-17.5); BG VENT MODE ROOM AIR
[2025-09-03] MEDS: ONDANSETRON HCL 4MG/2ML INJ IV PRN (14:07)
[2025-09-03 16:24] LABS: LYMPHOCYTES % MANUAL 86.0 % (20.0-50.0); MONOCYTES % MANUAL 3.0 % (2.0-8.0); NEUTROPHILS % MANUAL 11.0 % (45.0-75.0); PLATELET ESTIMATE MARKEDLY DECREASED
[2025-09-03] MEDS ORDERED: PHENYLEPHRINE 100 MG in DEXT 5% WATER 240 ML IV PRN (16:30)
[2025-09-03 17:13] LABS: LYMPHOCYTES % MANUAL 86.0 % (20.0-50.0); MONOCYTES % MANUAL 3.0 % (2.0-8.0); NEUTROPHILS % MANUAL 11.0 % (45.0-75.0)
[2025-09-03 17:14] LABS: PLATELET ESTIMATE MARKEDLY DECREASED
[2025-09-03 21:42] LABS: INR 1.2
[2025-09-03 21:46] LABS: CREATININE 2.4 mg/dL (0.6-1.3); RED BLOOD CELL COUNT 2.37 mill/uL (4.7-6.1); RED CELL DISTRIBUTION WIDTH 14.4 % (11.6-14.6)
[2025-09-03 21:47] LABS: UREA NITROGEN BLOOD 60.0 mg/dL (9-23)
[2025-09-03 21:53] LABS: PLATELET 1 x1000/uL (130-400)
[2025-09-04] VITALS (104 sets, daily range): BP systolic 87–160; BP diastolic 40–83; PULSE 83–118; RESP 10–46; TEMP 36.5–37.2252; O2SAT 95–100
[2025-09-04] MEDS ORDERED: SODIUM CHLORIDE 0.9% 1,000 ML IV SCH (08:15)
[2025-09-04] MEDS: SODIUM CHLORIDE 0.9% 1,000 ML IV SCH (09:36)
[2025-09-04] MEDS: VANCOMYCIN 1.5GM PMX (XELLIA) 300 ML IV NR (14:46)
[2025-09-04] MEDS ORDERED: DEXMEDETOMIDINE 100 ML IV PRN (17:30)
[2025-09-05] VITALS (52 sets, daily range): BP systolic 57–137; BP diastolic 24–97; PULSE 69–113; RESP 11–30; TEMP 36.4–37.33632; O2SAT 89–100
[2025-09-05 01:46] LABS: MEAN PLATELET VOLUME 7.4 fl (7.4-10.4); PLATELET 51 x1000/uL (130-400); RED BLOOD CELL COUNT 1.67 mill/uL (4.7-6.1); RED CELL DISTRIBUTION WIDTH 15.7 % (11.6-14.6)
[2025-09-05 04:45] LABS: HEMATOCRIT. 14.1 % (42.0-52.0); HEMOGLOBIN. 4.9 g/dL (14.0-18.0)
[2025-09-05 07:19] LABS: CREATININE 2.9 mg/dL (0.6-1.3); UREA NITROGEN BLOOD 93.0 mg/dL (9-23)
[2025-09-05 08:53] LABS: MEAN PLATELET VOLUME 7.3 fl (7.4-10.4); RED BLOOD CELL COUNT 1.57 mill/uL (4.7-6.1); RED CELL DISTRIBUTION WIDTH 15.3 % (11.6-14.6)
[2025-09-05 09:10] LABS: HEMATOCRIT. 13.3 % (42.0-52.0); HEMOGLOBIN. 4.5 g/dL (14.0-18.0); PLATELET 41 x1000/uL (130-400)
[2025-09-05] MEDS: PANTOPRAZOLE SODIUM 40 MG/VIAL IV SCH (15:07)
[2025-09-05] MEDS: MIDODRINE HCL 5MG TABLET PO SCH (15:08)
[2025-09-05 17:51] LABS: LYMPHOCYTES % MANUAL 72.0 % (20.0-50.0); MONOCYTES % MANUAL 8.0 % (2.0-8.0); NEUTROPHILS % MANUAL 20.0 % (45.0-75.0)
[2025-09-05 17:52] LABS: PLATELET ESTIMATE MARKEDLY DECREASED
[2025-09-05 22:17] LABS: BAND% 1.0 % (1.0-6.0); LYMPHOCYTES % MANUAL 75.0 % (20.0-50.0); MONOCYTES % MANUAL 6.0 % (2.0-8.0); NEUTROPHILS % MANUAL 18.0 % (45.0-75.0); PLATELET ESTIMATE MARKEDLY DECREASED
[2025-09-05] MEDS: CEFEPIME 2GM/100ML 100 ML IV SCH (23:00)
[2025-09-06] VITALS (92 sets, daily range): BP systolic 89–128; BP diastolic 50–94; PULSE 47–89; RESP 12–30; TEMP 37.1–37.72524; O2SAT 91–100
[2025-09-06 06:20] LABS: MEAN PLATELET VOLUME 7.3 fl (7.4-10.4); RED BLOOD CELL COUNT 2.45 mill/uL (4.7-6.1); RED CELL DISTRIBUTION WIDTH 15.2 % (11.6-14.6)
[2025-09-06 06:42] LABS: FOLIC ACID (FOLATE) SERUM 5.02 ng/mL (>5.38); VITAMIN B12 SERUM 474 pg/mL (211-911)
[2025-09-06 06:44] LABS: UREA NITROGEN BLOOD 56 mg/dL (9-23)
[2025-09-06 06:46] LABS: BILIRUBIN DIRECT 0.5 mg/dL (<=3.0); BILIRUBIN TOTAL 1.3 mg/dL (0.1-1.0); PROTEIN TOTAL 5.2 g/dL (6.0-8.3)
[2025-09-06 06:55] LABS: HEMATOCRIT. 20.4 % (42.0-52.0); HEMOGLOBIN. 6.9 g/dL (14.0-18.0)
[2025-09-06 07:01] LABS: ASPARTATE AMINOTRANSFERASE < 8 IU/L (<34); CREATININE 1.5 mg/dL (0.6-1.3)
[2025-09-06] MEDS: CEFEPIME 2GM/100ML 100 ML IV SCH (10:49)
[2025-09-06] MEDS: DEXT 5%/0.45% NACL 1000ML 1,000 ML IV SCH (13:17)
[2025-09-06 16:15] LABS: BAND% 7.0 % (1.0-6.0); LYMPHOCYTES % MANUAL 62.0 % (20.0-50.0); MONOCYTES % MANUAL 10.0 % (2.0-8.0); NEUTROPHILS % MANUAL 21.0 % (45.0-75.0); PLATELET 24 x1000/uL (130-400); PLATELET ESTIMATE MARKEDLY DECREASED
[2025-09-06] MEDS: DEXTROSE 5% WATER 1,000 ML IV SCH (17:13)
[2025-09-06 22:42] LABS: RED BLOOD CELL COUNT 2.64 mill/uL (4.7-6.1); RED CELL DISTRIBUTION WIDTH 15.5 % (11.6-14.6)
[2025-09-06 22:54] LABS: PLATELET 37 x1000/uL (130-400)
[2025-09-07] VITALS (76 sets, daily range): BP systolic 109–156; BP diastolic 56–86; PULSE 59–98; RESP 13–30; TEMP 36.6–37.4; O2SAT 89–100
[2025-09-07] MEDS: IPRATROPIUM/ALBUTEROL 0.5-3(2.5)MG/3ML NEB HHN SCH (02:47)
[2025-09-07] MEDS: BUDESONIDE 0.5MG/2ML NEB HHN SCH (02:48)
[2025-09-07 06:43] LABS: HEMATOCRIT. 22.0 % (42.0-52.0); HEMOGLOBIN. 7.5 g/dL (14.0-18.0); MEAN PLATELET VOLUME 8.0 fl (7.4-10.4); RED BLOOD CELL COUNT 2.60 mill/uL (4.7-6.1); RED CELL DISTRIBUTION WIDTH 15.4 % (11.6-14.6)
[2025-09-07 06:47] LABS: INR 1.0
[2025-09-07 06:53] LABS: CREATININE 1.0 mg/dL (0.6-1.3); UREA NITROGEN BLOOD 27 mg/dL (9-23)
[2025-09-07] MEDS: POTASSIUM CHLORIDE 20MEQ/PACKET PO NR (08:10)
[2025-09-07] MEDS: FOLIC ACID/VITAMIN B COMP W-C TABLET PO SCH (08:10)
[2025-09-07] MEDS: ACETAMINOPHEN 325MG TABLET PO PRN (09:02)
[2025-09-07 09:15] LABS: BAND% 2.0 % (1.0-6.0); LYMPHOCYTES % MANUAL 77.0 % (20.0-50.0); MONOCYTES % MANUAL 5.0 % (2.0-8.0); NEUTROPHILS % MANUAL 16.0 % (45.0-75.0)
[2025-09-07 09:16] LABS: PLATELET 30 x1000/uL (130-400); PLATELET ESTIMATE MARKEDLY DECREASED
[2025-09-07] MEDS ORDERED: PROPOFOL 200MG/20ML VIAL IV ONE (11:23)
[2025-09-07] MEDS: CEFEPIME 2GM/100ML 100 ML IV SCH (17:55)
[2025-09-08] VITALS (69 sets, daily range): BP systolic 50–144; BP diastolic 32–118; PULSE 65–104; RESP 13–27; TEMP 36.6–36.9; O2SAT 93–99
[2025-09-08 08:28] LABS: CREATININE 0.9 mg/dL (0.6-1.3); UREA NITROGEN BLOOD 15 mg/dL (9-23)
[2025-09-08] MEDS ORDERED: POTASSIUM CHLORIDE 20MEQ/PACKET PO NR (09:00)
[2025-09-08] MEDS: POTASSIUM CHLORIDE 20MEQ/PACKET PO NR (12:42)
[2025-09-08 12:52] LABS: HEMATOCRIT. 22.1 % (42.0-52.0); HEMOGLOBIN. 7.3 g/dL (14.0-18.0); MEAN PLATELET VOLUME 7.8 fl (7.4-10.4); RED BLOOD CELL COUNT 2.63 mill/uL (4.7-6.1); RED CELL DISTRIBUTION WIDTH 14.7 % (11.6-14.6)
[2025-09-08 13:12] LABS: PLATELET 45 x1000/uL (130-400)
[2025-09-08 13:36] LABS: BAND% 4.0 % (1.0-6.0); LYMPHOCYTES % MANUAL 74.0 % (20.0-50.0); MONOCYTES % MANUAL 4.0 % (2.0-8.0); NEUTROPHILS % MANUAL 18.0 % (45.0-75.0); PLATELET ESTIMATE DECREASED
[2025-09-09] VITALS (19 sets, daily range): BP systolic 100–137; BP diastolic 64–84; PULSE 62–91; RESP 12–22; TEMP 36.6–36.9; O2SAT 97–100
[2025-09-09 13:20] LABS: CREATININE 0.9 mg/dL (0.6-1.3); UREA NITROGEN BLOOD 10 mg/dL (9-23)
[2025-09-09 13:23] LABS: HEMATOCRIT. 21.3 % (42.0-52.0); HEMOGLOBIN. 7.1 g/dL (14.0-18.0); MEAN PLATELET VOLUME 7.9 fl (7.4-10.4); RED BLOOD CELL COUNT 2.54 mill/uL (4.7-6.1); RED CELL DISTRIBUTION WIDTH 14.6 % (11.6-14.6)
[2025-09-09] MEDS: ATORVASTATIN CALCIUM 40MG TABLET PO SCH (22:45)
[2025-09-10] VITALS (10 sets, daily range): BP systolic 111–149; BP diastolic 67–87; PULSE 59–85; RESP 18–19; TEMP 36.4–36.8; O2SAT 96–100
[2025-09-10] MEDS: POTASSIUM CHLORIDE 20MEQ/PACKET PO NR (00:09)
[2025-09-10 07:11] LABS: CREATININE 0.9 mg/dL (0.6-1.3); TRIGLYCERIDE 134 mg/dL (0-150); UREA NITROGEN BLOOD 10 mg/dL (9-23)
[2025-09-10 07:12] LABS: LDL CHOLESTEROL 101 mg/dL (5-100)
[2025-09-10 07:19] LABS: HEMATOCRIT. 21.8 % (42.0-52.0); HEMOGLOBIN. 7.4 g/dL (14.0-18.0); MEAN PLATELET VOLUME 8.3 fl (7.4-10.4); RED BLOOD CELL COUNT 2.58 mill/uL (4.7-6.1); RED CELL DISTRIBUTION WIDTH 14.5 % (11.6-14.6)
[2025-09-10 07:37] LABS: PLATELET 26 x1000/uL (130-400)
[2025-09-10 09:14] LABS: LYMPHOCYTES % MANUAL 69.0 % (20.0-50.0); MONOCYTES % MANUAL 5.0 % (2.0-8.0); NEUTROPHILS % MANUAL 26.0 % (45.0-75.0)
[2025-09-10 09:15] LABS: PLATELET ESTIMATE MARKEDLY DECREASED
[2025-09-10 09:17] LABS: PLATELET 34 x1000/uL (130-400)
[2025-09-10 16:28] LABS: LYMPHOCYTES % MANUAL 64.0 % (20.0-50.0); MONOCYTES % MANUAL 8.0 % (2.0-8.0); NEUTROPHILS % MANUAL 28.0 % (45.0-75.0); PLATELET ESTIMATE MARKEDLY DECREASED
[2025-09-11] VITALS (9 sets, daily range): BP systolic 110–150; BP diastolic 60–88; PULSE 66–84; RESP 15–19; TEMP 36.3–36.7; O2SAT 10–100
[2025-09-12] VITALS (13 sets, daily range): BP systolic 107–153; BP diastolic 61–96; PULSE 74–94; RESP 16–19; TEMP 36.16956–36.7; O2SAT 95–97
[2025-09-12 07:45] LABS: MEAN PLATELET VOLUME 8.0 fl (7.4-10.4); RED BLOOD CELL COUNT 2.31 mill/uL (4.7-6.1); RED CELL DISTRIBUTION WIDTH 14.1 % (11.6-14.6)
[2025-09-12 08:24] LABS: CREATININE 0.9 mg/dL (0.6-1.3)
[2025-09-12 08:25] LABS: UREA NITROGEN BLOOD 12 mg/dL (9-23)
[2025-09-12 09:13] LABS: HEMATOCRIT. 19.5 % (42.0-52.0); HEMOGLOBIN. 6.7 g/dL (14.0-18.0); PLATELET 8 x1000/uL (130-400)
[2025-09-12 17:13] LABS: EOSINOPHILS % MANUAL 1.0 % (0.0-5.0); LYMPHOCYTES % MANUAL 73.0 % (20.0-50.0); MONOCYTES % MANUAL 4.0 % (2.0-8.0); NEUTROPHILS % MANUAL 22.0 % (45.0-75.0)
[2025-09-12 17:14] LABS: PLATELET ESTIMATE MARKEDLY DECREASED
[2025-09-12] MEDS: PANTOPRAZOLE 40MG DR TABLET PO SCH (20:51)
[2025-09-13] VITALS (86 sets, daily range): BP systolic 108–195; BP diastolic 72–170; PULSE 82–104; RESP 11–29; TEMP 36.2–37.00296; O2SAT 92–100
[2025-09-13] MEDS: PANTOPRAZOLE 80 MG in SODIUM CHLORIDE 0.9% 100 ML IV SCH (02:52)
[2025-09-13 05:37] LABS: CREATININE 0.9 mg/dL (0.6-1.3)
[2025-09-13 05:38] LABS: UREA NITROGEN BLOOD 18 mg/dL (9-23)
[2025-09-13] MEDS ORDERED: MAGNESIUM/ALUMINUM HYDROXIDE/SIMETHICONE 30ML UDC PO PRN (05:45)
[2025-09-13] MEDS: MAGNESIUM/ALUMINUM HYDROXIDE/SIMETHICONE 30ML UDC PO SCH (06:00)
[2025-09-13 06:39] LABS: HEMATOCRIT. 23.1 % (42.0-52.0); HEMOGLOBIN. 7.9 g/dL (14.0-18.0); MEAN PLATELET VOLUME 7.8 fl (7.4-10.4); RED BLOOD CELL COUNT 2.70 mill/uL (4.7-6.1); RED CELL DISTRIBUTION WIDTH 14.5 % (11.6-14.6)
[2025-09-13 06:49] LABS: PLATELET 47 x1000/uL (130-400)
[2025-09-13 20:41] LABS: LYMPHOCYTES % MANUAL 40.0 % (20.0-50.0); MONOCYTES % MANUAL 12.0 % (2.0-8.0); NEUTROPHILS % MANUAL 48.0 % (45.0-75.0); PLATELET ESTIMATE MARKEDLY DECREASED
[2025-09-13] MEDS: TRAZODONE HCL 50MG TABLET PO SCH (20:56)
[2025-09-13] MEDS: PANTOPRAZOLE SODIUM 40 MG/VIAL IV SCH (20:56)
[2025-09-14] VITALS (26 sets, daily range): BP systolic 104–132; BP diastolic 64–81; PULSE 69–100; RESP 14–24; TEMP 36.6–37.16964; O2SAT 85–98
[2025-09-14 16:03] LABS: RED BLOOD CELL COUNT 2.42 mill/uL (4.7-6.1); RED CELL DISTRIBUTION WIDTH 14.2 % (11.6-14.6)
[2025-09-14 16:12] LABS: PLATELET 25 x1000/uL (130-400)
[2025-09-14] MEDS: SUCRALFATE 1G TABLET PO SCH (18:29)
[2025-09-15] VITALS: BP 108/76; PULSE 75; PULSE 78; RESP 17; RESP 18; TEMP 36.7; TEMP 36.72516; O2SAT 93
[2025-09-15 02:10] LABS: RED BLOOD CELL COUNT 2.62 mill/uL (4.7-6.1); RED CELL DISTRIBUTION WIDTH 14.3 % (11.6-14.6)
[2025-09-15 02:16] LABS: PLATELET 30 x1000/uL (130-400)
[2025-09-15 04:00] VITALS: BP 116/72; PULSE 92; RESP 18; TEMP 36.3; O2SAT 94
[2025-09-15 08:00] VITALS: BP 118/70; PULSE 90; RESP 18; TEMP 36.4; O2SAT 95
[2025-09-15 11:39] LABS: RED BLOOD CELL COUNT 2.54 mill/uL (4.7-6.1); RED CELL DISTRIBUTION WIDTH 14.2 % (11.6-14.6)
[2025-09-15 11:52] LABS: CREATININE 0.8 mg/dL (0.6-1.3); UREA NITROGEN BLOOD 12 mg/dL (9-23)
[2025-09-15 12:00] VITALS: BP 119/67; PULSE 88; RESP 17; TEMP 36.5; O2SAT 96
[2025-09-15 12:14] LABS: PLATELET 28 x1000/uL (130-400)
[2025-09-15 12:26] LABS: INR 1.1
[2025-09-15 16:00] VITALS: BP 116/64; PULSE 82; RESP 18; TEMP 36.7; O2SAT 96
[2025-09-15] MEDS ORDERED: HYDROCODONE/ACETAMINOPHEN 5/325MG TABLET PO PRN (17:15)
[2025-09-15] MEDS ORDERED: NALOXONE HCL 0.4MG/ML VIAL IV PRN (17:45)
[2025-09-15] MEDS: HYDROCODONE/ACETAMINOPHEN 5/325MG TABLET PO PRN (19:35)
[2025-09-15 20:00] VITALS: BP 95/64; PULSE 80; RESP 16; TEMP 36.5; O2SAT 97
[2025-09-16] VITALS: BP 105/67; PULSE 93; RESP 18; TEMP 36.3; O2SAT 98
[2025-09-16 04:00] VITALS: BP 101/59; PULSE 92; RESP 16; TEMP 36.6; O2SAT 98
[2025-09-16 08:00] VITALS: BP 102/61; PULSE 87; RESP 18; TEMP 35.8; O2SAT 97
[2025-09-16 12:00] VITALS: BP 102/61; PULSE 87; RESP 18; TEMP 35.8; O2SAT 97
[2025-09-16 16:00] VITALS: BP 102/61; PULSE 87; RESP 18; TEMP 35.8; O2SAT 97
[2025-09-16 20:00] VITALS: BP 124/67; PULSE 77; RESP 22; TEMP 37.4; O2SAT 98
[2025-09-17] VITALS: BP 105/54; PULSE 86; RESP 20; TEMP 36.5; O2SAT 96
[2025-09-17 04:30] VITALS: BP 113/66; PULSE 96; RESP 18; TEMP 37.1; O2SAT 97
[2025-09-17 08:00] VITALS: BP 115/69; PULSE 80; RESP 18; TEMP 37.2; O2SAT 97
[2025-09-17 08:01] LABS: CREATININE 0.8 mg/dL (0.6-1.3)
[2025-09-17 08:02] LABS: UREA NITROGEN BLOOD 15 mg/dL (9-23)
[2025-09-17 08:40] LABS: MEAN PLATELET VOLUME 7.5 fl (7.4-10.4); RED BLOOD CELL COUNT 2.19 mill/uL (4.7-6.1); RED CELL DISTRIBUTION WIDTH 14.0 % (11.6-14.6)
[2025-09-17 10:15] LABS: HEMATOCRIT. 18.9 % (42.0-52.0); HEMOGLOBIN. 6.4 g/dL (14.0-18.0); PLATELET 13 x1000/uL (130-400)
[2025-09-17 12:00] VITALS: BP 112/68; PULSE 84; RESP 18; TEMP 38; O2SAT 97
[2025-09-17 16:00] VITALS: BP 110/70; PULSE 80; RESP 18; TEMP 36.3; O2SAT 97
[2025-09-17 17:40] LABS: LYMPHOCYTES % MANUAL 68.0 % (20.0-50.0); MONOCYTES % MANUAL 4.0 % (2.0-8.0); NEUTROPHILS % MANUAL 28.0 % (45.0-75.0); PLATELET ESTIMATE MARKEDLY DECREASED
[2025-09-17 20:00] VITALS: BP 126/69; PULSE 68; RESP 18; TEMP 36.6; O2SAT 95
[2025-09-18] VITALS: BP 118/64; PULSE 68; RESP 18; TEMP 36.4; O2SAT 96
[2025-09-18 04:00] VITALS: BP 120/64; PULSE 70; RESP 18; TEMP 36.4; O2SAT 97
[2025-09-18 08:22] LABS: BASOPHILS % 0.0 % (0.0-2.0); EOSINOPHILS % 0.1 % (0.0-5.0); LYMPHOCYTES % 58.8 % (20.0-50.0); MEAN PLATELET VOLUME 7.1 fl (7.4-10.4); MONOCYTES % 8.6 % (2.0-8.0); NEUTROPHILS % 32.5 % (40.0-76.0); RED BLOOD CELL COUNT 2.13 mill/uL (4.7-6.1); RED CELL DISTRIBUTION WIDTH 13.9 % (11.6-14.6)
[2025-09-18 08:45] LABS: CREATININE 0.8 mg/dL (0.6-1.3); UREA NITROGEN BLOOD 15 mg/dL (9-23)
[2025-09-18 08:45] LABS: HEMATOCRIT. 18.4 % (42.0-52.0); HEMOGLOBIN. 6.0 g/dL (14.0-18.0); PLATELET 10 x1000/uL (130-400)
[2025-09-18 13:22] LABS: BASOPHILS % 0.1 % (0.0-2.0); EOSINOPHILS % 0.1 % (0.0-5.0); LYMPHOCYTES % 57.3 % (20.0-50.0); MEAN PLATELET VOLUME 7.4 fl (7.4-10.4); MONOCYTES % 7.3 % (2.0-8.0); NEUTROPHILS % 35.2 % (40.0-76.0); RED BLOOD CELL COUNT 2.18 mill/uL (4.7-6.1); RED CELL DISTRIBUTION WIDTH 14.1 % (11.6-14.6)
[2025-09-18 13:43] LABS: HEMATOCRIT. 19.1 % (42.0-52.0); HEMOGLOBIN. 6.4 g/dL (14.0-18.0); PLATELET 9 x1000/uL (130-400)
[2025-09-18 13:59] VITALS: BP 108/62
[2025-09-18 16:00] VITALS: BP 114/63; PULSE 88; RESP 18; TEMP 36.4; O2SAT 96
[2025-09-18 20:00] VITALS: BP 199/74; PULSE 84; RESP 20; TEMP 37.3; O2SAT 92
[2025-09-19] VITALS (16 sets, daily range): BP systolic 91–122; BP diastolic 56–80; PULSE 70–97; RESP 17–20; TEMP 36.22512–37.2252; O2SAT 96–97
[2025-09-19 09:34] LABS: BASOPHILS % 0.3 % (0.0-2.0); EOSINOPHILS % 0.1 % (0.0-5.0); LYMPHOCYTES % 57.7 % (20.0-50.0); MEAN PLATELET VOLUME 8.0 fl (7.4-10.4); MONOCYTES % 7.7 % (2.0-8.0); NEUTROPHILS % 34.2 % (40.0-76.0); RED BLOOD CELL COUNT 1.86 mill/uL (4.7-6.1); RED CELL DISTRIBUTION WIDTH 14.1 % (11.6-14.6)
[2025-09-19 09:38] LABS: CREATININE 0.8 mg/dL (0.6-1.3); UREA NITROGEN BLOOD 17 mg/dL (9-23)
[2025-09-19 09:44] LABS: HEMATOCRIT. 16.0 % (42.0-52.0); HEMOGLOBIN. 5.3 g/dL (14.0-18.0)
[2025-09-19 09:45] LABS: PLATELET 8 x1000/uL (130-400)
[2025-09-19 09:50] LABS: INR 1.1
[2025-09-20] VITALS (11 sets, daily range): BP systolic 105–115; BP diastolic 60–74; PULSE 68–84; RESP 15–20; TEMP 36.1–36.7; O2SAT 98–100
[2025-09-20] MEDS: FUROSEMIDE 40MG/4ML VIAL IVP NR (00:44)
[2025-09-20 07:25] LABS: BASOPHILS % 0.1 % (0.0-2.0); EOSINOPHILS % 0.2 % (0.0-5.0); HEMATOCRIT. 21.4 % (42.0-52.0); HEMOGLOBIN. 7.3 g/dL (14.0-18.0); LYMPHOCYTES % 53.6 % (20.0-50.0); MEAN PLATELET VOLUME 6.5 fl (7.4-10.4); MONOCYTES % 8.8 % (2.0-8.0); NEUTROPHILS % 37.3 % (40.0-76.0); RED BLOOD CELL COUNT 2.51 mill/uL (4.7-6.1); RED CELL DISTRIBUTION WIDTH 14.1 % (11.6-14.6)
[2025-09-20 08:23] LABS: PLATELET 19 x1000/uL (130-400)
[2025-09-20 09:52] LABS: CREATININE 0.9 mg/dL (0.6-1.3); UREA NITROGEN BLOOD 19 mg/dL (9-23)
[2025-09-21] VITALS: BP 115/74; PULSE 70; RESP 19; TEMP 36.7
[2025-09-21 04:00] VITALS: BP 93/65; PULSE 88; RESP 19; TEMP 36.4; O2SAT 19
[2025-09-21 08:00] VITALS: BP 114/66; PULSE 71; RESP 17; TEMP 36.6; O2SAT 99
[2025-09-21 12:00] VITALS: BP 112/61; PULSE 70; RESP 18; TEMP 36.6; O2SAT 99
[2025-09-21 16:00] VITALS: BP 110/60; PULSE 72; RESP 18; TEMP 36.7; O2SAT 98
[2025-09-21 20:00] VITALS: BP 110/60; PULSE 86; RESP 19; TEMP 37.1; O2SAT 97
[2025-09-22] VITALS (10 sets, daily range): BP systolic 98–128; BP diastolic 54–74; PULSE 77–91; RESP 16–19; TEMP 36.4–37; O2SAT 93–100
[2025-09-22 08:02] LABS: BASOPHILS % 0.1 % (0.0-2.0); EOSINOPHILS % 0.1 % (0.0-5.0); LYMPHOCYTES % 52.5 % (20.0-50.0); MEAN PLATELET VOLUME 7.2 fl (7.4-10.4); MONOCYTES % 6.8 % (2.0-8.0); NEUTROPHILS % 40.5 % (40.0-76.0); RED BLOOD CELL COUNT 2.32 mill/uL (4.7-6.1); RED CELL DISTRIBUTION WIDTH 14.1 % (11.6-14.6)
[2025-09-22 08:57] LABS: HEMATOCRIT. 19.8 % (42.0-52.0); HEMOGLOBIN. 6.7 g/dL (14.0-18.0); PLATELET 11 x1000/uL (130-400)
[2025-09-23] VITALS (7 sets, daily range): BP systolic 99–121; BP diastolic 57–69; PULSE 66–86; RESP 18–19; TEMP 36.4–36.8; O2SAT 92–99
[2025-09-24] VITALS (7 sets, daily range): BP systolic 101–118; BP diastolic 59–75; PULSE 63–84; RESP 18; TEMP 36.28068–37.3; O2SAT 97–99
[2025-09-24 08:02] LABS: BASOPHILS % 0.1 % (0.0-2.0); EOSINOPHILS % 0.2 % (0.0-5.0); LYMPHOCYTES % 57.2 % (20.0-50.0); MEAN PLATELET VOLUME 7.5 fl (7.4-10.4); MONOCYTES % 6.8 % (2.0-8.0); NEUTROPHILS % 35.7 % (40.0-76.0); RED BLOOD CELL COUNT 2.27 mill/uL (4.7-6.1); RED CELL DISTRIBUTION WIDTH 14.4 % (11.6-14.6)
[2025-09-24 08:24] LABS: HEMATOCRIT. 19.2 % (42.0-52.0); HEMOGLOBIN. 6.3 g/dL (14.0-18.0)
[2025-09-24 12:21] LABS: PLATELET 21 x1000/uL (130-400)
[2025-09-25 07:33] LABS: BASOPHILS % 0.1 % (0.0-2.0); EOSINOPHILS % 0.3 % (0.0-5.0); HEMATOCRIT. 21.4 % (42.0-52.0); HEMOGLOBIN. 7.4 g/dL (14.0-18.0); LYMPHOCYTES % 52.0 % (20.0-50.0); MEAN PLATELET VOLUME 7.5 fl (7.4-10.4); MONOCYTES % 9.1 % (2.0-8.0); NEUTROPHILS % 38.5 % (40.0-76.0); RED BLOOD CELL COUNT 2.66 mill/uL (4.7-6.1); RED CELL DISTRIBUTION WIDTH 16.8 % (11.6-14.6)
[2025-09-25 08:00] VITALS: BP 105/65; PULSE 85; RESP 18; TEMP 36.4; O2SAT 96
[2025-09-25 08:02] LABS: PLATELET 15 x1000/uL (130-400)
[2025-09-25 12:00] VITALS: BP 110/74; PULSE 81; RESP 18; TEMP 36.2; O2SAT 95
[2025-09-25 16:00] VITALS: BP 113/71; RESP 18; TEMP 36.4; O2SAT 95
[2025-09-25 20:00] VITALS: BP 123/75; PULSE 78; RESP 19; TEMP 36.9; O2SAT 95
[2025-09-26] VITALS: BP 118/72; PULSE 84; RESP 19; TEMP 36.3; O2SAT 96
[2025-09-26 04:00] VITALS: BP 126/69; PULSE 78; RESP 18; TEMP 36.2; O2SAT 95
[2025-09-26 08:00] VITALS: BP 118/70; PULSE 79; RESP 20; TEMP 36.6; O2SAT 97
[2025-09-26 12:00] VITALS: BP 124/71; PULSE 81; RESP 18; TEMP 36.4; O2SAT 98
[2025-09-26 16:00] VITALS: BP 117/66; PULSE 76; RESP 18; TEMP 36.6; O2SAT 96
[2025-09-26 20:00] VITALS: BP 125/70; PULSE 72; RESP 18; TEMP 36.2; O2SAT 96
[2025-09-27] VITALS (11 sets, daily range): BP systolic 102–128; BP diastolic 65–76; PULSE 68–89; RESP 17–20; TEMP 36–36.8; O2SAT 97–98
[2025-09-27 08:23] LABS: BASOPHILS % 0.1 % (0.0-2.0); EOSINOPHILS % 0.3 % (0.0-5.0); HEMATOCRIT. 23.0 % (42.0-52.0); HEMOGLOBIN. 7.6 g/dL (14.0-18.0); LYMPHOCYTES % 55.2 % (20.0-50.0); MEAN PLATELET VOLUME 7.4 fl (7.4-10.4); MONOCYTES % 8.8 % (2.0-8.0); NEUTROPHILS % 35.6 % (40.0-76.0); RED BLOOD CELL COUNT 2.77 mill/uL (4.7-6.1); RED CELL DISTRIBUTION WIDTH 15.7 % (11.6-14.6)
[2025-09-28 08:00] VITALS: BP 117/77; PULSE 91; RESP 18; TEMP 36.8; O2SAT 98
[2025-09-28 11:01] LABS: BASOPHILS % 0.1 % (0.0-2.0); EOSINOPHILS % 0.4 % (0.0-5.0); LYMPHOCYTES % 58.9 % (20.0-50.0); MEAN PLATELET VOLUME 7.4 fl (7.4-10.4); MONOCYTES % 9.0 % (2.0-8.0); NEUTROPHILS % 31.6 % (40.0-76.0); PLATELET 73 x1000/uL (130-400); RED BLOOD CELL COUNT 2.28 mill/uL (4.7-6.1); RED CELL DISTRIBUTION WIDTH 15.3 % (11.6-14.6)
[2025-09-28 11:25] LABS: CREATININE 0.9 mg/dL (0.6-1.3); UREA NITROGEN BLOOD 16 mg/dL (9-23)
[2025-09-28 11:27] LABS: ASPARTATE AMINOTRANSFERASE 15 IU/L (<34); BILIRUBIN TOTAL 0.6 mg/dL (0.1-1.0); PROTEIN TOTAL 6.4 g/dL (6.0-8.3)
[2025-09-28 11:32] LABS: HEMATOCRIT. 19.1 % (42.0-52.0); HEMOGLOBIN. 6.4 g/dL (14.0-18.0)
[2025-09-28 12:00] VITALS: BP 94/55; PULSE 88; RESP 17; TEMP 36.7; O2SAT 98
[2025-09-28 16:00] VITALS: BP 96/56; PULSE 85; RESP 18; TEMP 36.6; O2SAT 98
[2025-09-28 20:00] VITALS: BP 101/68; PULSE 78; RESP 19; TEMP 36.4; O2SAT 98
[2025-09-29 06:54] LABS: BASOPHILS % 0.1 % (0.0-2.0); EOSINOPHILS % 0.3 % (0.0-5.0); LYMPHOCYTES % 56.4 % (20.0-50.0); MEAN PLATELET VOLUME 7.6 fl (7.4-10.4); MONOCYTES % 9.3 % (2.0-8.0); NEUTROPHILS % 33.9 % (40.0-76.0); PLATELET 60 x1000/uL (130-400); RED BLOOD CELL COUNT 2.27 mill/uL (4.7-6.1); RED CELL DISTRIBUTION WIDTH 15.4 % (11.6-14.6)
[2025-09-29 06:58] LABS: HEMATOCRIT. 18.9 % (42.0-52.0); HEMOGLOBIN. 6.3 g/dL (14.0-18.0)
[2025-09-29 07:01] LABS: INR 1.1
[2025-09-29 07:09] LABS: CREATININE 0.9 mg/dL (0.6-1.3); UREA NITROGEN BLOOD 15 mg/dL (9-23)
[2025-09-29 08:00] VITALS: BP 97/60; PULSE 75; RESP 19; TEMP 36.6; O2SAT 97
[2025-09-29] MEDS: POLYETHYLENE GLYCOL 3350 (17GM) 1 DOSE PACK PO SCH (11:41)
[2025-09-29 12:00] VITALS: BP 101/55; PULSE 83; RESP 18; TEMP 36.4; O2SAT 98
[2025-09-29 14:46] LABS: PLATELET 10 x1000/uL (130-400)
[2025-09-29 16:00] VITALS: BP 92/50; PULSE 60; RESP 18; TEMP 36.4; O2SAT 95
[2025-09-29 20:00] VITALS: BP 104/68; PULSE 71; RESP 18; TEMP 36.3; O2SAT 97
[2025-09-30] VITALS: BP 111/72; PULSE 86; RESP 18; TEMP 36.4; O2SAT 98
[2025-09-30 04:00] VITALS: BP 110/71; PULSE 93; RESP 18; TEMP 36.3; O2SAT 97
[2025-09-30 08:00] VITALS: BP 103/71; PULSE 87; RESP 16; TEMP 36.2; O2SAT 98
[2025-09-30 12:00] VITALS: BP 114/74; PULSE 75; RESP 17; TEMP 36.2; O2SAT 98
[2025-09-30 16:00] VITALS: BP 112/64; PULSE 73; RESP 18; TEMP 36.1; O2SAT 98
[2025-09-30 20:00] VITALS: BP 118/80; PULSE 75; RESP 17; TEMP 35.7; O2SAT 98
[2025-10-01] VITALS: BP 112/67; PULSE 82; RESP 16; TEMP 37.5; O2SAT 95
[2025-10-01 04:00] VITALS: BP 121/68; PULSE 93; RESP 18; TEMP 36.8; O2SAT 97
[2025-10-01 06:41] LABS: BASOPHILS % 0.1 % (0.0-2.0); EOSINOPHILS % 0.2 % (0.0-5.0); LYMPHOCYTES % 58.6 % (20.0-50.0); MEAN PLATELET VOLUME 7.5 fl (7.4-10.4); MONOCYTES % 8.7 % (2.0-8.0); NEUTROPHILS % 32.4 % (40.0-76.0); RED BLOOD CELL COUNT 2.18 mill/uL (4.7-6.1); RED CELL DISTRIBUTION WIDTH 14.9 % (11.6-14.6)
[2025-10-01 07:00] LABS: CREATININE 0.9 mg/dL (0.6-1.3); UREA NITROGEN BLOOD 8 mg/dL (9-23)
[2025-10-01 07:11] LABS: HEMATOCRIT. 18.1 % (42.0-52.0); HEMOGLOBIN. 6.1 g/dL (14.0-18.0); PLATELET 39 x1000/uL (130-400)
[2025-10-01 08:00] VITALS: BP 104/69; PULSE 84; PULSE 98; RESP 17; RESP 18; TEMP 36.7; O2SAT 97
[2025-10-01 12:00] VITALS: BP 112/72; PULSE 78; RESP 17; TEMP 36.7; O2SAT 98
[2025-10-01] MEDS: LACTULOSE 20G/30ML UDC PO PRN (13:32)
[2025-10-01 16:00] VITALS: BP 116/74; PULSE 74; RESP 18; TEMP 36.1; O2SAT 98
[2025-10-01 20:00] VITALS: BP 136/49; PULSE 67; RESP 17; TEMP 36.8; O2SAT 95
[2025-10-02] VITALS: BP 113/67; PULSE 98; RESP 16; TEMP 35.8; O2SAT 99
[2025-10-02 04:00] VITALS: BP 106/63; PULSE 95; RESP 16; TEMP 35.8; O2SAT 98
[2025-10-02 08:00] VITALS: BP 111/61; PULSE 85; RESP 18; TEMP 36.5; O2SAT 99
[2025-10-02 08:01] LABS: BASOPHILS % 0.3 % (0.0-2.0); EOSINOPHILS % 4.5 % (0.0-5.0); HEMATOCRIT. 33.0 % (42.0-52.0); LYMPHOCYTES % 16.9 % (20.0-50.0); MEAN PLATELET VOLUME 7.6 fl (7.4-10.4); MONOCYTES % 7.8 % (2.0-8.0); NEUTROPHILS % 70.5 % (40.0-76.0); PLATELET 176 x1000/uL (130-400); RED BLOOD CELL COUNT 3.41 mill/uL (4.7-6.1); RED CELL DISTRIBUTION WIDTH 13.4 % (11.6-14.6)
[2025-10-02 08:18] LABS: HEMOGLOBIN. 10.8 g/dL (14.0-18.0)
[2025-10-02 08:21] LABS: UREA NITROGEN BLOOD 24 mg/dL (9-23)
[2025-10-02 08:44] LABS: CREATININE 0.5 mg/dL (0.6-1.3)
[2025-10-02 12:00] VITALS: BP 99/67; PULSE 92; RESP 18; TEMP 36.6; O2SAT 87
[2025-10-02 16:00] VITALS: BP 103/68; PULSE 99; RESP 18; TEMP 36.6; O2SAT 97
[2025-10-02 20:00] VITALS: BP 100/69; PULSE 84; RESP 16; TEMP 36.7; O2SAT 100
[2025-10-03 04:00] VITALS: BP 109/62; PULSE 85; RESP 16; TEMP 36.5; O2SAT 100
[2025-10-03 08:00] VITALS: BP 107/68; PULSE 77; RESP 18; TEMP 36.8; O2SAT 100
[2025-10-03 11:28] LABS: BASOPHILS % 0.1 % (0.0-2.0); EOSINOPHILS % 0.3 % (0.0-5.0); LYMPHOCYTES % 48.0 % (20.0-50.0); MEAN PLATELET VOLUME 7.9 fl (7.4-10.4); MONOCYTES % 9.5 % (2.0-8.0); NEUTROPHILS % 42.1 % (40.0-76.0); RED BLOOD CELL COUNT 1.74 mill/uL (4.7-6.1); RED CELL DISTRIBUTION WIDTH 15.0 % (11.6-14.6)
[2025-10-03 11:31] LABS: HEMATOCRIT. 15.2 % (42.0-52.0); HEMOGLOBIN. 5.0 g/dL (14.0-18.0)
[2025-10-03 11:33] LABS: PLATELET 15 x1000/uL (130-400)
[2025-10-03 12:00] VITALS: BP 101/71; PULSE 94; RESP 18; TEMP 36.9; O2SAT 98
[2025-10-03 13:44] LABS: BASOPHILS % 0.1 % (0.0-2.0); EOSINOPHILS % 0.3 % (0.0-5.0); LYMPHOCYTES % 53.6 % (20.0-50.0); MEAN PLATELET VOLUME 7.7 fl (7.4-10.4); MONOCYTES % 10.0 % (2.0-8.0); NEUTROPHILS % 36.0 % (40.0-76.0); RED BLOOD CELL COUNT 2.19 mill/uL (4.7-6.1); RED CELL DISTRIBUTION WIDTH 14.8 % (11.6-14.6)
[2025-10-03 13:52] LABS: CREATININE 1.0 mg/dL (0.6-1.3); UREA NITROGEN BLOOD 8 mg/dL (9-23)
[2025-10-03 14:13] LABS: HEMOGLOBIN. 6.3 g/dL (14.0-18.0)
[2025-10-03 14:14] LABS: HEMATOCRIT. 18.3 % (42.0-52.0); PLATELET 17 x1000/uL (130-400)
[2025-10-03 16:00] VITALS: BP 108/63; PULSE 98; RESP 18; TEMP 36.8; O2SAT 98
[2025-10-04] VITALS (10 sets, daily range): BP systolic 92–114; BP diastolic 51–71; PULSE 72–89; RESP 14–18; TEMP 36.6–37.5; O2SAT 97–100
[2025-10-04 14:01] LABS: BASOPHILS % 0.1 % (0.0-2.0); EOSINOPHILS % 0.2 % (0.0-5.0); LYMPHOCYTES % 56.1 % (20.0-50.0); MEAN PLATELET VOLUME 6.9 fl (7.4-10.4); MONOCYTES % 11.1 % (2.0-8.0); NEUTROPHILS % 32.5 % (40.0-76.0); RED BLOOD CELL COUNT 1.97 mill/uL (4.7-6.1); RED CELL DISTRIBUTION WIDTH 15.0 % (11.6-14.6)
[2025-10-04 14:13] LABS: CREATININE 0.9 mg/dL (0.6-1.3); UREA NITROGEN BLOOD 10 mg/dL (9-23)
[2025-10-04 14:48] LABS: HEMATOCRIT. 16.1 % (42.0-52.0); HEMOGLOBIN. 5.6 g/dL (14.0-18.0)
[2025-10-04 14:49] LABS: PLATELET 12 x1000/uL (130-400)
[2025-10-04] MEDS: IPRATROPIUM/ALBUTEROL 0.5-3(2.5)MG/3ML NEB ONE (21:04)
[2025-10-05] VITALS (15 sets, daily range): BP systolic 96–108; BP diastolic 57–73; PULSE 61–90; RESP 16–20; TEMP 35.89176–37.16964; O2SAT 98–100
[2025-10-05 06:47] LABS: BASOPHILS % 0.2 % (0.0-2.0); EOSINOPHILS % 0.4 % (0.0-5.0); LYMPHOCYTES % 54.4 % (20.0-50.0); MEAN PLATELET VOLUME 9.0 fl (7.4-10.4); MONOCYTES % 8.5 % (2.0-8.0); NEUTROPHILS % 36.5 % (40.0-76.0); RED BLOOD CELL COUNT 2.28 mill/uL (4.7-6.1); RED CELL DISTRIBUTION WIDTH 16.5 % (11.6-14.6)
[2025-10-05 06:52] LABS: CREATININE 1.0 mg/dL (0.6-1.3)
[2025-10-05 06:53] LABS: UREA NITROGEN BLOOD 9 mg/dL (9-23)
[2025-10-05 07:20] LABS: HEMATOCRIT. 18.4 % (42.0-52.0); HEMOGLOBIN. 6.2 g/dL (14.0-18.0)
[2025-10-05 10:03] LABS: PLATELET 28 x1000/uL (130-400)
[2025-10-06] VITALS (9 sets, daily range): BP systolic 99–109; BP diastolic 59–72; PULSE 77–96; RESP 16–19; TEMP 36.3918–37.39188; O2SAT 95–100
[2025-10-06 10:32] LABS: BASOPHILS % 0.1 % (0.0-2.0); EOSINOPHILS % 0.4 % (0.0-5.0); LYMPHOCYTES % 48.8 % (20.0-50.0); MEAN PLATELET VOLUME 8.3 fl (7.4-10.4); MONOCYTES % 9.8 % (2.0-8.0); NEUTROPHILS % 40.9 % (40.0-76.0); RED BLOOD CELL COUNT 2.25 mill/uL (4.7-6.1); RED CELL DISTRIBUTION WIDTH 16.8 % (11.6-14.6)
[2025-10-06 10:35] LABS: HEMOGLOBIN. 6.0 g/dL (14.0-18.0)
[2025-10-06 10:36] LABS: HEMATOCRIT. 20.3 % (42.0-52.0); PLATELET 36 x1000/uL (130-400)
[2025-10-06 10:42] LABS: CREATININE 0.9 mg/dL (0.6-1.3)
[2025-10-06 10:43] LABS: UREA NITROGEN BLOOD 9 mg/dL (9-23)
[2025-10-07] VITALS: BP 103/64; PULSE 84; RESP 18; TEMP 35.9; O2SAT 97
[2025-10-07 04:00] VITALS: BP 103/53; PULSE 87; RESP 19; TEMP 35.1; O2SAT 97
[2025-10-07 08:00] VITALS: BP 95/57; PULSE 89; RESP 18; TEMP 37.1; O2SAT 99
[2025-10-07 12:00] VITALS: BP 108/72; PULSE 84; RESP 18; TEMP 36.7; O2SAT 97
[2025-10-07 14:23] LABS: BASOPHILS % 0.1 % (0.0-2.0); EOSINOPHILS % 0.4 % (0.0-5.0); LYMPHOCYTES % 50.5 % (20.0-50.0); MEAN PLATELET VOLUME 8.9 fl (7.4-10.4); MONOCYTES % 10.4 % (2.0-8.0); NEUTROPHILS % 38.6 % (40.0-76.0); RED BLOOD CELL COUNT 2.42 mill/uL (4.7-6.1); RED CELL DISTRIBUTION WIDTH 15.9 % (11.6-14.6)
[2025-10-07 14:37] LABS: ASPARTATE AMINOTRANSFERASE 24 IU/L (<34); BILIRUBIN DIRECT 0.2 mg/dL (<=3.0); BILIRUBIN TOTAL 0.7 mg/dL (0.1-1.0); PROTEIN TOTAL 6.4 g/dL (6.0-8.3)
[2025-10-07 14:38] LABS: CREATININE 0.9 mg/dL (0.6-1.3); UREA NITROGEN BLOOD 14 mg/dL (9-23)
[2025-10-07 14:44] LABS: HEMATOCRIT. 20.0 % (42.0-52.0); HEMOGLOBIN. 6.7 g/dL (14.0-18.0); PLATELET 26 x1000/uL (130-400)
[2025-10-07 16:00] VITALS: BP 103/69; PULSE 83; RESP 18; TEMP 37.4; O2SAT 96
[2025-10-07 20:00] VITALS: BP 109/69; PULSE 83; RESP 18; TEMP 36.7; O2SAT 97
[2025-10-08] VITALS: BP 110/65; PULSE 84; RESP 17; TEMP 36.9; O2SAT 98
[2025-10-08 04:00] VITALS: BP 104/65; PULSE 91; RESP 18; TEMP 36.7; O2SAT 95
[2025-10-08 08:00] VITALS: BP 100/59; RESP 18; TEMP 37.1; O2SAT 98
[2025-10-08 12:00] VITALS: BP 99/72; RESP 18; TEMP 37.2; O2SAT 98
[2025-10-08 16:00] VITALS: BP 104/69; RESP 18; TEMP 37.2; O2SAT 98
[2025-10-08 19:32] LABS: CREATININE 0.8 mg/dL (0.6-1.3); UREA NITROGEN BLOOD 14 mg/dL (9-23)
[2025-10-08 19:40] LABS: BASOPHILS % 0.1 % (0.0-2.0); EOSINOPHILS % 0.4 % (0.0-5.0); HEMATOCRIT. 21.1 % (42.0-52.0); HEMOGLOBIN. 7.1 g/dL (14.0-18.0); LYMPHOCYTES % 54.6 % (20.0-50.0); MEAN PLATELET VOLUME 8.5 fl (7.4-10.4); MONOCYTES % 9.2 % (2.0-8.0); NEUTROPHILS % 35.7 % (40.0-76.0); RED BLOOD CELL COUNT 2.59 mill/uL (4.7-6.1); RED CELL DISTRIBUTION WIDTH 15.9 % (11.6-14.6)
[2025-10-08 20:00] VITALS: BP 105/73; PULSE 85; RESP 16; TEMP 36.7; O2SAT 97
[2025-10-08 20:01] LABS: PLATELET 19 x1000/uL (130-400)
[2025-10-09] VITALS (7 sets, daily range): BP systolic 101–109; BP diastolic 56–76; PULSE 82–95; RESP 17–19; TEMP 36.22512–36.9; O2SAT 95–98
[2025-10-09 06:09] LABS: BASOPHILS % 0.2 % (0.0-2.0); EOSINOPHILS % 0.5 % (0.0-5.0); LYMPHOCYTES % 52.5 % (20.0-50.0); MEAN PLATELET VOLUME 8.1 fl (7.4-10.4); MONOCYTES % 10.0 % (2.0-8.0); NEUTROPHILS % 36.8 % (40.0-76.0); RED BLOOD CELL COUNT 2.50 mill/uL (4.7-6.1); RED CELL DISTRIBUTION WIDTH 16.0 % (11.6-14.6)
[2025-10-09 06:22] LABS: CREATININE 0.9 mg/dL (0.6-1.3); UREA NITROGEN BLOOD 11 mg/dL (9-23)
[2025-10-09 06:53] LABS: HEMOGLOBIN. 6.8 g/dL (14.0-18.0)
[2025-10-09 06:54] LABS: HEMATOCRIT. 20.5 % (42.0-52.0); PLATELET 17 x1000/uL (130-400)
[2025-10-09] MEDS: HEPARIN 1000 UNITS/ML 10ML ONE (20:22)
[2025-10-10] VITALS: BP 110/68; PULSE 78; RESP 18; TEMP 36.4; O2SAT 98
[2025-10-10 04:00] VITALS: BP 111/63; PULSE 75; RESP 18; TEMP 36.4; O2SAT 97
[2025-10-10 08:00] VITALS: BP 107/63; PULSE 101; RESP 20; TEMP 36.4; O2SAT 95
[2025-10-10 12:00] VITALS: BP 93/60; PULSE 94; RESP 20; TEMP 36.5; O2SAT 96
[2025-10-10 20:00] VITALS: BP 102/89; PULSE 99; RESP 18; TEMP 36.6; O2SAT 100
[2025-10-11] VITALS: BP 96/58; PULSE 100; RESP 18; TEMP 36.3; O2SAT 100
[2025-10-11 04:00] VITALS: BP 100/62; PULSE 94; RESP 19; TEMP 36.6; O2SAT 100
[2025-10-11 08:00] VITALS: BP_SYST 138; BP_SYST 99; BP_DIAS 63; BP_DIAS 83; PULSE 93; RESP 18; TEMP 36.9; O2SAT 98
[2025-10-11 12:00] VITALS: BP 94/65; PULSE 107; RESP 20; TEMP 36.8; O2SAT 99
[2025-10-11 16:00] VITALS: BP 91/56; PULSE 102; RESP 20; TEMP 36.3; O2SAT 99
[2025-10-11 20:00] VITALS: BP 101/59; PULSE 104; RESP 19; TEMP 36.9; O2SAT 98
[2025-10-12 00:16] VITALS: BP 110/60; PULSE 104; RESP 17; TEMP 36.5; O2SAT 98
[2025-10-12 04:00] VITALS: BP 93/53; PULSE 100; RESP 18; TEMP 35.8; O2SAT 99
[2025-10-12 08:00] VITALS: BP 93/59; PULSE 101; RESP 18; TEMP 36.6; O2SAT 100
[2025-10-12 11:56] VITALS: BP 95/57; PULSE 100; RESP 19; TEMP 97.7
[2025-10-12] MEDS ORDERED: SUCR1TAB PO (12:01)
[2025-10-12] MEDS ORDERED: ATOR-388 MT (12:01)
[2025-10-12] MEDS: PANTOPRAZOLE 40MG DR TABLET PO SCH (12:16)
[2025-10-12 12:22] VITALS: BP 95/57; PULSE 100; RESP 19; TEMP 36.5; O2SAT 98
[2025-10-12 16:00] VITALS: BP_SYST 84; BP_SYST 96; BP_DIAS 47; BP_DIAS 57; PULSE 104; PULSE 98; RESP 18; TEMP 36.6; O2SAT 100
[2025-10-12] MEDS ORDERED: ATORVASTATIN CALCIUM 40MG TABLET PO SCH (21:00)
[2025-10-18] MEDS ORDERED: TOPUD MT (02:00)
== END 2025-10-12 17:02 | DRG 951 ==
LOC: ER 12:28 → EDBEDREQTM 18:58 → EDBEDREQ 18:58 → 7WST 19:06 → EDBEDREQ 19:49 → EDBEDREQTM 19:49 → ENRESERV 20:14 → 8EST 08-10 22:48 → 5EST 08-17 03:12 → 6EST 08-20 14:49 → 8WST 09-03 06:38 → CVICU 09-03 10:51 → 6WST 09-09 03:24 → MICUSO 09-13 04:31 → 3WST 09-14 02:53 → 4WST 09-15 01:45 → 7EST 09-28 22:16
PROVIDERS: ADMIT Internal Medicine; ATTEND Internal Medicine
PROC: 30233N1 Transfusion of Nonautologous Red Blood Cells into Peripheral Vein, Percutaneous Approach (ICD-10-PCS; 2025-08-02)
PROC: 30233R1 Transfusion of Nonautologous Platelets into Peripheral Vein, Percutaneous Approach (ICD-10-PCS; 2025-08-02)
PROC: 0KBD0ZZ Excision of Left Hand Muscle, Open Approach (ICD-10-PCS; 2025-08-30)
PROC: 0JBK0ZZ Excision of Left Hand Subcutaneous Tissue and Fascia, Open Approach (ICD-10-PCS; principal; 2025-09-02)
PROC: 02HV33Z Insertion of Infusion Device into Superior Vena Cava, Percutaneous Approach (ICD-10-PCS; 2025-09-05)
PROC: B548ZZA Ultrasonography of Superior Vena Cava, Guidance (ICD-10-PCS; 2025-09-05)
PROC: 30233K1 Transfusion of Nonautologous Frozen Plasma into Peripheral Vein, Percutaneous Approach (ICD-10-PCS; 2025-09-06)
PROC: 0DJ08ZZ Inspection of Upper Intestinal Tract, Via Natural or Artificial Opening Endoscopic (ICD-10-PCS; 2025-09-07)
DX: D61.818 Other pancytopenia (principal); N17.0 Acute kidney failure with tubular necrosis; R57.8 Other shock; I63.89 Other cerebral infarction; R78.81 Bacteremia; K28.4 Chronic or unspecified gastrojejunal ulcer with hemorrhage; D70.9 Neutropenia, unspecified; D69.59 Other secondary thrombocytopenia; D68.4 Acquired coagulation factor deficiency; N39.0 Urinary tract infection, site not specified; R65.10 Systemic inflammatory response syndrome (SIRS) of non-infectious origin without acute organ dysfunction; F10.10 Alcohol abuse, uncomplicated; F14.10 Cocaine abuse, uncomplicated; N18.9 Chronic kidney disease, unspecified; K74.60 Unspecified cirrhosis of liver; I69.334 Monoplegia of upper limb following cerebral infarction affecting left non-dominant side; E87.20 Acidosis, unspecified; D62 Acute posthemorrhagic anemia; F11.10 Opioid abuse, uncomplicated; F19.10 Other psychoactive substance abuse, uncomplicated; L02.512 Cutaneous abscess of left hand; E86.9 Volume depletion, unspecified; R50.81 Fever presenting with conditions classified elsewhere; J98.4 Other disorders of lung; N28.1 Cyst of kidney, acquired; I42.9 Cardiomyopathy, unspecified; D75.9 Disease of blood and blood-forming organs, unspecified; E86.1 Hypovolemia; S61.401A Unspecified open wound of right hand, initial encounter; F17.210 Nicotine dependence, cigarettes, uncomplicated; R16.2 Hepatomegaly with splenomegaly, not elsewhere classified; K44.9 Diaphragmatic hernia without obstruction or gangrene; E87.5 Hyperkalemia; E87.0 Hyperosmolality and hypernatremia; E87.6 Hypokalemia; E53.8 Deficiency of other specified B group vitamins; R00.0 Tachycardia, unspecified; Z78.1 Physical restraint status; Z87.19 Personal history of other diseases of the digestive system; X58.XXXA Exposure to other specified factors, initial encounter; Y93.89 Activity, other specified; Y92.89 Other specified places as the place of occurrence of the external cause; Y99.8 Other external cause status
CPT/HCPCS: 36415; 36573; 36600; 70551; 71045; 71250; 74018; 76700; 78278; 80048; 80053; 80061; 80076; 80202; 80305; 80320; 81003; 82375; 82607; 82746; 82805; 83036; 83520; 83540; 83550; 83605; 83615; 83735; 83880; 84100; 84145; 84155; 84165; 84443; 84484; 84550; 85014; 85018; 85025; 85027; 85049; 85379; 85384; 86038; 86078; 86160; 86256; 86705; 86709; 86850; 86900; 86920; 86927; 86945; 87340; 88305; 92523; 92610; 93005; 93306; 93970; 94070; 94640; 94664; 97110; 97112; 97116; 97162; 97164; 97165; 97168; 97530; 98960; 99285; A4606; A4615; A6449; A9560; C1725; J0692; J0696; J1442; J1644; J1938; J2270; J2354; J2371; J2405; J2470; J2704; J3373; J3475; J7030; J7050; J7070; J7626; P9016; P9017; P9034; Q0163; G0480